=== PATIENT | female | born 1945 | race Caucasian/White ===

== ENCOUNTER 2016-11-24 12:01 | Emergency (ER) | payer MEDICARE, BC ==
[2016-11-24 12:13] VITALS: BP 132/60; PULSE 87; RESP 16; TEMP 97.1
[2016-11-24] MEDS ORDERED: SODIUM CHLORIDE 0.9% 500 ML IV STA (12:42)
[2016-11-24] MEDS ORDERED: MORPHINE SULFATE 4 MG/ML SYRINGE IV STA (12:42)
[2016-11-24] MEDS ORDERED: SODIUM CHLORIDE 0.9% 1,000 ML IV STA (12:42)
--- NOTE | 2016-11-24 13:02 | ED ---
General Adult HPI - General Chief complaint: Extremity Injury, Lower Stated complaint: left knee pain/pneumonia Time Seen by Provider: 11/24/16 12:04 Source: patient, EMS, RN notes reviewed, old records reviewed Mode of arrival: EMS Limitations: no limitations - History of Present Illness Initial comments: This is a 71-year-old female ER for evaluation. Patient presents today for evaluation of extremity pain left knee pain left hip pain after having injury. Patient also states she feels weak, fatigued. Mild shortness of breath. Patient has no other complaints. No modifying factors or symptoms, at this time patient currently unable to bear weight on left - Related Data Home Medications Medication Instructions Recorded Confirmed LORazepam [Ativan] 2 mg PO QID 08/18/16 11/24/16 Edoxaban Tosylate [Savaysa] 60 mg PO HS 11/24/16 11/24/16 Metoprolol Tartrate [Lopressor] 25 mg PO BID 11/24/16 11/24/16 Multivitamins, Thera [Multivitamin] 1 tab PO DAILY 11/24/16 11/24/16 Previous Rx's Medication Instructions Recorded levETIRAcetam [Keppra] 750 mg PO Q12HR #60 tab 08/21/16 HYDROcodone/APAP 5-325MG [[place] 1 tab PO BID #0 10/14/16 5-325] Loratadine [Claritin] 10 mg PO DAILY tab 10/14/16 Allergies Allergy/AdvReac Type Severity Reaction Status Date / Time No Known Allergies Allergy Verified 11/24/16 12:37 Review of Systems ROS Statement: Those systems with pertinent positive or pertinent negative responses have been documented in the HPI. ROS Other: All systems not noted in ROS Statement are negative. Past Medical History Past Medical History: COPD, CVA/TIA, Deep Vein Thrombosis (DVT), GERD/Reflux, Hyperlipidemia, Hypertension, Myocardial Infarction ([place]), Mitral Valve Prolapse (MVP), Osteoarthritis (OA), Pneumonia, Seizure Disorder, Syncope Additional Past Medical History / Comment(s): DVT L lower leg, CVA/TIA with L arm and L leg weakness, constipation, MVP, nephrolithiasis x 2-passed 1 stone, peptic ulcer disease, hiatal hernia, esophageal ulcer, djd,ddd lumbar area, chronic back pain, past L tibial fx and L hip fx, cellulitis L lower leg, UTIs, syncopy. Last Myocardial Infarction Date:: 2015 History of Any Multi-Drug Resistant Organisms: None Reported Past Surgical History: Orthopedic Surgery, Tonsillectomy Additional Past Surgical History / Comment(s): 08/2014 lap exam, LEFT HIP SX WITH NAILING, left eye implant- POST FACIAL INJURY, BRAIN SX R/T ANEURYSM- HAD DRAIN IN NOW OUT, EGD and colonoscopy. Past Anesthesia/Blood Transfusion Reactions: No Reported Reaction Additional Past Anesthesia/Blood Transfusion Reaction / Comment(s): clausterphobia Past Psychological History: Anxiety, Depression Additional Psychological History / Comment(s): Pt resides at [facility]. Pt states she performs her own ADLs. She gets around in a wheelchair and transfers herself into the W/C. HAS BEEN TAKING ATIVAN FOR 35 YRS. Smoking Status: Former smoker Past Alcohol Use History: None Reported Additional Past Alcohol Use History / Comment(s): Pt started smoking in about 1998 and STOPPED SMOKING JUN 2015. She was a light smoker. Past Drug Use History: None Reported - Past Family History Mother Family Medical History: Hypertension Additional Family Medical History / Comment(s): heart problems. Mother at age 87yrs. Father History Unknown: Yes Additional Family Medical History / Comment(s): pt's dad left when she was a baby -no hx known. General Exam Limitations: no limitations General appearance: alert, in no apparent distress, cachectic Head exam: Present: atraumatic, normocephalic, normal inspection Eye exam: Present: normal appearance, PERRL, EOMI. Absent: scleral icterus, conjunctival injection, periorbital swelling ENT exam: Present: normal exam, mucous membranes moist Neck exam: Present: normal inspection. Absent: tenderness, meningismus, lymphadenopathy Respiratory exam: Present: normal lung sounds bilaterally. Absent: respiratory distress, wheezes, rales, rhonchi, stridor Cardiovascular Exam: Present: regular rate, normal rhythm, normal heart sounds. Absent: systolic murmur, diastolic murmur, rubs, gallop, clicks GI/Abdominal exam: Present: soft, normal bowel sounds. Absent: distended, tenderness, guarding, rebound, rigid Extremities exam: Present: normal inspection, full ROM, normal capillary refill. Absent: tenderness, pedal edema, joint swelling, calf tenderness Back exam: Present: normal inspection Neurological exam: Present: alert, oriented X3, CN II-XII intact Psychiatric exam: Present: normal affect, normal mood Skin exam: Present: warm, dry, intact, normal color. Absent: rash Course Vital Signs 11/24/16 12:09 Temperature 97.1 F L Pulse Rate 87 Respiratory 16 Rate Blood Pressure 132/60 O2 Sat by Pulse 95 Oximetry - Reevaluation(s) Reevaluation #1: 11/24/16 14:55 Patient refusing to have IV Reevaluation #2: 11/24/16 14:55 Patient is in no acute distress EKG Findings - EKG Comments: EKG Findings:: EKG shows normal sinus rhythm rate 91, AL 156, QRS 140, QTC 516 Medical Decision Making - Medical Decision Making 7-year-old female year after traumatic injury left knee, patient has continued x -ray of hip knee are negative, chest x-ray also negative. - Lab Data Result diagrams: 11/24/16 13:25 11/24/16 13:25 Lab Results 11/24/16 11/24/16 11/24/16 Range/Units 13:25 13:25 13:25 WBC 10.1 (3.8-10.6) k/uL RBC 3.84 (3.80-5.40) m/uL Hgb 12.2 (11.4-16.0) gm/dL Hct 38.8 (34.0-46.0) % MCV 101.1 H (80.0-100.0) fL MCH 31.8 (25.0-35.0) pg MCHC 31.5 (31.0-37.0) g/dL RDW 14.1 (11.5-15.5) % Plt Count 252 (150-450) k/uL Neutrophils % 85 % Lymphocytes % 9 % Monocytes % 4 % Eosinophils % 0 % Basophils % 1 % Neutrophils # 8.6 H (1.3-7.7) k/uL Lymphocytes # 0.9 L (1.0-4.8) k/uL Monocytes # 0.4 (0-1.0) k/uL Eosinophils # 0.0 (0-0.7) k/uL Basophils # 0.1 (0-0.2) k/uL Macrocytosis Slight Sodium 144 (137-145) mmol/L Potassium 4.1 (3.5-5.1) mmol/L Chloride 108 H (98-107) mmol/L Carbon Dioxide 27 (22-30) mmol/L Anion Gap 9 mmol/L BUN 18 H (7-17) mg/dL Creatinine 0.55 (0.52-1.04) mg/dL Est GFR (MDRD) Af Amer >60 (>60 ml/min/1.73 sqM) Est GFR (MDRD) Non-Af >60 (>60 ml/min/1.73 sqM) Glucose 99 (74-99) mg/dL Calcium 8.5 (8.4-10.2) mg/dL Phosphorus 3.9 (2.5-4.5) mg/dL Magnesium 1.7 (1.6-2.3) mg/dL Total Bilirubin 0.3 (0.2-1.3) mg/dL AST 20 (14-36) U/L ALT 29 (9-52) U/L Alkaline Phosphatase 91 (38-126) U/L Total Creatine Kinase 50 (30-135) U/L CK-MB (CK-2) 0.8 (0.0-2.4) ng/mL CK-MB (CK-2) Rel Index 1.6 Troponin I 0.020 (0.000-0.034) ng/mL Total Protein 6.4 (6.3-8.2) g/dL Albumin 3.3 L (3.5-5.0) g/dL - Radiology Data Radiology results: report reviewed (Chest x-ray and a left hip x-ray left knee negative for acute disease), image reviewed Disposition Clinical Impression: Contusion of left knee Disposition: HOME SELF-CARE Condition: Good Instructions: Knee Pain (ED) Referrals: Masood Cornejo MD [Primary Care Provider] - 1-2 days
[2016-11-24 13:43] LABS: Basophils # (A) 0.1 k/uL (0-0.2); Basophils % (A) 1 %; CHCM 32.8; Eosinophils % (A) 0 %; HCT 38.8 % (34.0-46.0); HDW 2.43; HGB 12.2 gm/dL (11.4-16.0); Luc # (Auto) 0.07; Luc % (Auto) 1; Lymphocytes # (A) 0.9 k/uL (1.0-4.8); Lymphocytes % (A) 9 %; MCH 31.8 pg (25.0-35.0); MCHC 31.5 g/dL (31.0-37.0); MCV 101.1 fL (80.0-100.0); Macrocytosis Slight; Monocytes # (A) 0.4 k/uL (0-1.0); Monocytes % (A) 4 %; Neutrophils # (A) 8.6 k/uL (1.3-7.7); Neutrophils % (A) 85 %; RBC 3.84 m/uL (3.80-5.40); RDW 14.1 % (11.5-15.5); WBC 10.1 k/uL (3.8-10.6); WBC (Perox) 9.99
[2016-11-24 13:58] LABS: ALT 29 U/L (9-52); AST 20 U/L (14-36); Alkaline Phosphatase 91 U/L (38-126); Anion Gap 9 mmol/L; Blood Urea Nitrogen 18 mg/dL (7-17); Calcium 8.5 mg/dL (8.4-10.2); Carbon Dioxide 27 mmol/L (22-30); Chloride 108 mmol/L (98-107); Glucose 99 mg/dL (74-99); Magnesium 1.7 mg/dL (1.6-2.3); Non-African American GFR(MDRD) >60 (>60 ml/min/1.73 sqM); Phosphorous 3.9 mg/dL (2.5-4.5); Potassium 4.1 mmol/L (3.5-5.1); Sodium 144 mmol/L (137-145); Total Bilirubin 0.3 mg/dL (0.2-1.3); Total Protein 6.4 g/dL (6.3-8.2)
--- NOTE | 2016-11-24 14:35 | XR ---
EXAMINATION TYPE: XR chest 2V DATE OF EXAM: 11/24/2016 2:26 PM COMPARISON: Prior chest x-ray October 12, 2016 HISTORY: Shortness of breath TECHNIQUE: Frontal and lateral views of the chest are obtained. FINDINGS: There is chronic emphysematous change with perhaps new mild central vascular congestion. Th ere is no focal air space opacity, pleural effusion, or pneumothorax seen. The cardiac silhouette si ze is stable and within normal limits without reflect thoracic aorta. The osseous structures are de mineralized. IMPRESSION: Chronic parenchymal changes with perhaps new mild central vascular congestion, clinical correlation advised.
[2016-11-24 14:37] LABS: Creatine Kinase MB 0.8 ng/mL (0.0-2.4); Troponin I 0.02 ng/mL (0.000-0.034)
--- NOTE | 2016-11-24 14:42 | XR ---
EXAMINATION TYPE: XR knee complete LT DATE OF EXAM: 11/24/2016 2:27 PM CLINICAL HISTORY: pain TECHNIQUE: Three views of the left knee are obtained. COMPARISON: None. FINDINGS: There is no acute fracture/dislocation. Healed approximately tibial fracture. The tri-comp artment joint spaces appear within normal limits. The overlying soft tissue appears unremarkable. IMPRESSION: There is no acute fracture or dislocation ICD 10 NO FRACTURE, INITIAL EVALUATION
--- NOTE | 2016-11-24 14:43 | XR ---
EXAMINATION TYPE: XR Hip Complete LT DATE OF EXAM: 11/24/2016 2:27 PM CLINICAL HISTORY: pain TECHNIQUE: AP and frogleg views of the left hip are obtained. COMPARISON: 09/15/2016 FINDINGS: There is no acute fracture/dislocation evident. Dynamic compression screw and intramedulla ry calvin proximal left femur. The overlying soft tissue appears unremarkable. IMPRESSION: 1. There is no acute fracture or dislocation.
[2016-11-24] MEDS ORDERED: KETOROLAC 30 MG/ML 1 ML VIAL IM STA (15:10)
[2016-11-24 15:35] LABS: Appearance,Urine Clear (Clear); Bacteria,Urine Occasional /hpf; Bilirubin,Urine Negative (Negative); Glucose,Urine (UA) Negative (Negative); Ketones,Urine Negative (Negative); Leukocyte Esterase,Urine Small (Negative); Mucus,Urine Rare /hpf; Nitrite,Urine Negative (Negative); Particle Count 2108; Protein,Urine Negative (Negative); RBC,Urine 87 /hpf (0-5); Squamous Epithelial Cell,Urine 2 /hpf (0-4); UA Billing (MACRO vs. MICRO) MICRO; Urobilinogen,Urine <2.0 mg/dL (<2.0); WBC,Urine 9 /hpf (0-5)
== END 2016-11-24 15:26 | disposition home or self-care (01) ==
LOC: EC 12:01
DX: S80.02XA Contusion of left knee, initial encounter (principal); X58.XXXA Exposure to other specified factors, initial encounter; R06.02 Shortness of breath; I10 Essential (primary) hypertension; G40.909 Epilepsy, unspecified, not intractable, without status epilepticus; J44.9 Chronic obstructive pulmonary disease, unspecified; F41.9 Anxiety disorder, unspecified; Z79.899 Other long term (current) drug therapy; Z79.01 Long term (current) use of anticoagulants; Z86.718 Personal history of other venous thrombosis and embolism; Z87.891 Personal history of nicotine dependence; Z86.73 Personal history of transient ischemic attack (TIA), and cerebral infarction without residual deficits; I25.2 Old myocardial infarction
CPT/HCPCS: 36415; 71020; 73502; 80053; 81001; 82550; 82553; 83735; 84100; 84484; 85025; 87077; 87086; 87186; 93005; 99284

== ENCOUNTER 2016-12-09 13:15 | Emergency (ER) | payer MEDICARE, BC ==
--- NOTE | 2016-12-09 13:37 | ED ---
General Adult HPI - General Chief complaint: Fall Stated complaint: Lt hip pain/fall Time Seen by Provider: 12/09/16 13:20 Source: patient, EMS, RN notes reviewed Mode of arrival: EMS Limitations: no limitations - History of Present Illness Initial comments: This is a 71-year-old female who presents emergency department stating that she was trying to transfer from wheelchair to the bed and she fell into the bed and hit her medial on the railing of the bed. Patient states she did not fall to the ground but she did tell the nurse she had left hip pain. Patient denied left hip pain when I spoke with. Patient denies any other injury. Patient denies losing consciousness or hitting her head at all. Patient denies any neck pain patient denies numbness weakness. Patient denies chest pain or palpitations. Patient denies any shortness of breath or difficulty breathing. Patient denies any other extremity pain. - Related Data Home Medications Medication Instructions Recorded Confirmed LORazepam [Ativan] 2 mg PO QID 08/18/16 12/09/16 Edoxaban Tosylate [Savaysa] 60 mg PO HS 11/24/16 12/09/16 Metoprolol Tartrate [Lopressor] 25 mg PO BID 11/24/16 12/09/16 Multivitamins, Thera [Multivitamin] 1 tab PO DAILY 11/24/16 12/09/16 Previous Rx's Medication Instructions Recorded levETIRAcetam [Keppra] 750 mg PO Q12HR #60 tab 08/21/16 HYDROcodone/APAP 5-325MG [[place] 1 tab PO BID #0 10/14/16 5-325] Loratadine [Claritin] 10 mg PO DAILY tab 10/14/16 Allergies Allergy/AdvReac Type Severity Reaction Status Date / Time No Known Allergies Allergy Verified 12/09/16 13:49 Review of Systems ROS Statement: Those systems with pertinent positive or pertinent negative responses have been documented in the HPI. ROS Other: All systems not noted in ROS Statement are negative. Past Medical History Past Medical History: COPD, CVA/TIA, Deep Vein Thrombosis (DVT), GERD/Reflux, Hyperlipidemia, Hypertension, Myocardial Infarction ([place]), Mitral Valve Prolapse (MVP), Osteoarthritis (OA), Pneumonia, Seizure Disorder, Syncope Additional Past Medical History / Comment(s): DVT L lower leg, CVA/TIA with L arm and L leg weakness, constipation, MVP, nephrolithiasis x 2-passed 1 stone, peptic ulcer disease, hiatal hernia, esophageal ulcer, djd,ddd lumbar area, chronic back pain, past L tibial fx and L hip fx, cellulitis L lower leg, UTIs, syncopy. Last Myocardial Infarction Date:: 2015 History of Any Multi-Drug Resistant Organisms: None Reported Past Surgical History: Orthopedic Surgery, Tonsillectomy Additional Past Surgical History / Comment(s): 08/2014 lap exam, LEFT HIP SX WITH NAILING, left eye implant- POST FACIAL INJURY, BRAIN SX R/T ANEURYSM- HAD DRAIN IN NOW OUT, EGD and colonoscopy. Past Anesthesia/Blood Transfusion Reactions: No Reported Reaction Additional Past Anesthesia/Blood Transfusion Reaction / Comment(s): clausterphobia Past Psychological History: Anxiety, Depression Additional Psychological History / Comment(s): Pt resides at [facility]. Pt states she performs her own ADLs. She gets around in a wheelchair and transfers herself into the W/C. HAS BEEN TAKING ATIVAN FOR 35 YRS. Smoking Status: Former smoker Past Alcohol Use History: None Reported Additional Past Alcohol Use History / Comment(s): Pt started smoking in about 1998 and STOPPED SMOKING JUN 2015. She was a light smoker. Past Drug Use History: None Reported - Past Family History Mother Family Medical History: Hypertension Additional Family Medical History / Comment(s): heart problems. Mother at age 87yrs. Father History Unknown: Yes Additional Family Medical History / Comment(s): pt's dad left when she was a baby -no hx known. General Exam - General Exam Comments Initial Comments: GENERAL Patient is well-developed and well-nourished. Patient is in mild distress. EYES Patient's pupils are equal and round. Extraocular motion is intact SKIN Unremarkable NEURO The patient is alert and oriented 3 PYSCH Patient has normal interpersonal interactions. MUSCULOSKELETAL Patient has some tenderness to the suprapatellar region there is no swelling there is no bruising patient has full range of motion of the leg except for full extension which she states is chronic. Patient has no hip pain that I can ascertain. Limitations: no limitations Course Vital Signs 12/09/16 13:19 Temperature 97.9 F Pulse Rate 96 Respiratory 18 Rate Blood Pressure 154/78 O2 Sat by Pulse 90 L Oximetry Medical Decision Making - Medical Decision Making X-ray the patient's knee and pelvis did not show any acute abnormality. Disposition Clinical Impression: Knee strain Disposition: HOME SELF-CARE Condition: Good Instructions: Fall Prevention for Older Adults (ED) Referrals: Masood Cornejo MD [Primary Care Provider] - 1-2 days Time of Disposition: 14:50
--- NOTE | 2016-12-09 14:23 | XR ---
AP pelvis HISTORY: Trauma, pain Frontal view of the pelvis submitted and correlated to prior exam CT abdomen pelvis 11 October 2016, left hip 24 November 2016 Postop changes to the left hip are again noted, bone mineralization is reduced and there is varus def ormity. Vascular calcifications are present within the pelvis. No evident dislocation. Patient is rot ated. The site screw may breech the cortex of the femoral head. IMPRESSION: Low bone mineralization could limit sensitivity. Postop change is stable.
--- NOTE | 2016-12-09 14:27 | XR ---
Left knee HISTORY: Pain, fall 3 views of the left knee Correlation to prior exam 24 November 2016 There is no interval change. Cortical thickening present in the proximal diaphysis of the left tibia as on prior exam. This may BE due to old trauma. There are vascular calcifications. IMPRESSION: Stable exam. No acute abnormalities evident.
[2016-12-09 15:26] VITALS: BP 146/73; PULSE 88; RESP 16; TEMP 97.5
== END 2016-12-09 15:28 | disposition home or self-care (01) ==
LOC: EC 13:15
DX: S83.92XA Sprain of unspecified site of left knee, initial encounter (principal); I25.2 Old myocardial infarction; I10 Essential (primary) hypertension; F41.9 Anxiety disorder, unspecified; F32.9 Major depressive disorder, single episode, unspecified; Z79.899 Other long term (current) drug therapy; Z87.891 Personal history of nicotine dependence; W05.0XXA Fall from non-moving wheelchair, initial encounter; Y92.009 Unspecified place in unspecified non-institutional (private) residence as the place of occurrence of the external cause
CPT/HCPCS: 72170; 99284

== ENCOUNTER 2016-12-25 16:22 | Inpatient (IN) | payer MEDICARE, BC ==
[2016-12-25] MEDS ORDERED: SODIUM CHLORIDE 0.9% 1,000 ML IV STA (16:26)
[2016-12-25 16:50] LABS: ALT 22 U/L (9-52); AST 18 U/L (14-36); Alkaline Phosphatase 89 U/L (38-126); Anion Gap 10 mmol/L; Blood Urea Nitrogen 21 mg/dL (7-17); Calcium 8.8 mg/dL (8.4-10.2); Carbon Dioxide 25 mmol/L (22-30); Chloride 110 mmol/L (98-107); Glucose 99 mg/dL (74-99); Non-African American GFR(MDRD) >60 (>60 ml/min/1.73 sqM); Potassium 3.9 mmol/L (3.5-5.1); Sodium 145 mmol/L (137-145); Total Bilirubin 0.3 mg/dL (0.2-1.3)
[2016-12-25 16:51] LABS: INR 1.2 (<1.1); Prothrombin Time 11.6 sec (9.0-12.0)
[2016-12-25 17:01] LABS: Aty Lym Flag Slight; Basophils % (A) 1 %; CH 32.1; CHCM 32.7; Eosinophils # (A) 0.1 k/uL (0-0.7); Eosinophils % (A) 2 %; HCT 37.5 % (34.0-46.0); HDW 2.47; HGB 12.2 gm/dL (11.4-16.0); Luc # (Auto) 0.24; Luc % (Auto) 5; Lymphocytes # (A) 1.4 k/uL (1.0-4.8); Lymphocytes % (A) 27 %; MCH 32.1 pg (25.0-35.0); MCHC 32.5 g/dL (31.0-37.0); MCV 98.7 fL (80.0-100.0); Mean Platelet Volume 8.2; Monocytes # (A) 0.4 k/uL (0-1.0); Monocytes % (A) 8 %; Neutrophils # (A) 2.9 k/uL (1.3-7.7); Neutrophils % (A) 57 %; RDW 13.7 % (11.5-15.5); WBC (Perox) 4.96
[2016-12-25 17:14] LABS: Creatine Kinase MB 1.7 ng/mL (0.0-2.4); Troponin I 0.023 ng/mL (0.000-0.034)
[2016-12-25 17:15] LABS: Manual Review Performed; Nucleated Red Blood Cells 0 /100 WBC (0-0); Total Cells Counted 100
--- NOTE | 2016-12-25 17:35 | XR ---
EXAMINATION TYPE: XR chest 1V portable DATE OF EXAM: 12/25/2016 5:26 PM COMPARISON: 11/24/2016 HISTORY: Short of breath TECHNIQUE: Single frontal view of the chest is obtained. FINDINGS: Heart and mediastinum are normal. There is coarse interstitial infiltrate in both lungs wi th coalescent density in the right lower lobe and also lateral left lung base. There are no hilar mas ses. There is no heart failure. There are chest leads. There is no definite pleural effusion. IMPRESSION: There are new bilateral pneumonic infiltrates compared to old exam consistent with pneum onia. No gross heart failure.
[2016-12-25] MEDS ORDERED: SODIUM CHLORIDE 0.9% 500 ML IV STA (17:48)
[2016-12-25] MEDS ORDERED: KETOROLAC 30 MG/ML 1 ML VIAL IVP STA (17:48)
[2016-12-25] MEDS ORDERED: MORPHINE SULFATE 4 MG/ML SYRINGE IVP STA (17:48)
[2016-12-25] MEDS ORDERED: MORPHINE SULFATE 4 MG/ML SYRINGE IVP PRN (17:48)
[2016-12-25] MEDS ORDERED: NITROGLYCERIN SL TABS 0.4 MG TAB SUBLINGUAL PRN (17:49)
[2016-12-25] MEDS ORDERED: HEPARIN SODIUM,PORCINE 5,000 UNIT/ML 1 ML VIAL IV ONE (17:49)
[2016-12-25] MEDS ORDERED: HEPARIN SODIUM,PORCINE 5,000 UNIT/ML 1 ML VIAL IV PRN (17:49)
[2016-12-25] MEDS ORDERED: IPRATROPIUM-ALBUTEROL 3 ML NEB INHALATION STA (17:54)
[2016-12-25] MEDS ORDERED: PIPERACILLIN-TAZOBACTAM 3.375 GM in DEXTROSE/WATER 1 50ML.BAG IVPB STA (17:54)
[2016-12-25] MEDS ORDERED: LEVOFLOXACIN 750MG-D5W PMX 750 MG in DEXTROSE/WATER 1 150ML.BAG IVPB STA (17:54)
--- NOTE | 2016-12-25 17:54 | ED ---
General Adult HPI - General Chief complaint: Chest Pain Stated complaint: chest pain Time Seen by Provider: 12/25/16 16:24 Source: patient, RN notes reviewed, old records reviewed Mode of arrival: EMS Limitations: no limitations - History of Present Illness Initial comments: This is a 71-year-old female ER for reevaluation chest pain. Patient's anterior chest pain radiating to her back. Patient is no prior history of chest pain no trauma no falls. Has increased cough and some sick contacts with recent hospitalization about 2 weeks ago and patient states his x-ray care facility. Patient does have COPD and has mild shortness of breath she states that is her baseline. Patient denies radiation of chest pain, worse when she coughs or takes deep breath. - Related Data Home Medications Medication Instructions Recorded Confirmed LORazepam [Ativan] 2 mg PO QID 08/18/16 12/25/16 Edoxaban Tosylate [Savaysa] 60 mg PO HS 11/24/16 12/25/16 Multivitamins, Thera [Multivitamin] 1 tab PO DAILY 11/24/16 12/25/16 Amitriptyline HCl [Elavil] 50 mg PO HS 12/25/16 12/25/16 Metoprolol Tartrate [Lopressor] 50 mg PO BID 12/25/16 12/25/16 Omeprazole 20 mg PO DAILY 12/25/16 12/25/16 Oxybutynin Chloride [Ditropan] 5 mg PO DAILY 12/25/16 12/25/16 amLODIPine [Norvasc] 5 mg PO DAILY 12/25/16 12/25/16 levETIRAcetam [Keppra] 750 mg PO Q12H 12/25/16 12/25/16 traMADol HCL [Ultram] 50 mg PO Q6HR PRN 12/25/16 12/25/16 Previous Rx's Medication Instructions Recorded Loratadine [Claritin] 10 mg PO DAILY tab 10/14/16 Allergies Allergy/AdvReac Type Severity Reaction Status Date / Time No Known Allergies Allergy Verified 12/25/16 17:25 Review of Systems ROS Statement: Those systems with pertinent positive or pertinent negative responses have been documented in the HPI. ROS Other: All systems not noted in ROS Statement are negative. Past Medical History Past Medical History: COPD, CVA/TIA, Deep Vein Thrombosis (DVT), GERD/Reflux, Hyperlipidemia, Hypertension, Myocardial Infarction ([place]), Mitral Valve Prolapse (MVP), Osteoarthritis (OA), Pneumonia, Seizure Disorder, Syncope Additional Past Medical History / Comment(s): DVT L lower leg, CVA/TIA with L arm and L leg weakness, constipation, MVP, nephrolithiasis x 2-passed 1 stone, peptic ulcer disease, hiatal hernia, esophageal ulcer, djd,ddd lumbar area, chronic back pain, past L tibial fx and L hip fx, cellulitis L lower leg, UTIs, syncopy. Last Myocardial Infarction Date:: 2015 History of Any Multi-Drug Resistant Organisms: None Reported Past Surgical History: Orthopedic Surgery, Tonsillectomy Additional Past Surgical History / Comment(s): 08/2014 lap exam, LEFT HIP SX WITH NAILING, left eye implant- POST FACIAL INJURY, BRAIN SX R/T ANEURYSM- HAD DRAIN IN NOW OUT, EGD and colonoscopy. Past Anesthesia/Blood Transfusion Reactions: No Reported Reaction Additional Past Anesthesia/Blood Transfusion Reaction / Comment(s): clausterphobia Past Psychological History: Anxiety, Depression Additional Psychological History / Comment(s): Pt resides at [facility]. Pt states she performs her own ADLs. She gets around in a wheelchair and transfers herself into the W/C. HAS BEEN TAKING ATIVAN FOR 35 YRS. Smoking Status: Current every day smoker Past Alcohol Use History: None Reported Additional Past Alcohol Use History / Comment(s): Pt started smoking in about 1998 and STOPPED SMOKING JUN 2015. She was a light smoker. Past Drug Use History: None Reported - Past Family History Mother Family Medical History: Hypertension Additional Family Medical History / Comment(s): heart problems. Mother at age 87yrs. Father History Unknown: Yes Additional Family Medical History / Comment(s): pt's dad left when she was a baby -no hx known. General Exam Limitations: no limitations General appearance: alert, in no apparent distress, anxious, cachectic Head exam: Present: atraumatic, normocephalic, normal inspection Eye exam: Present: normal appearance, PERRL, EOMI. Absent: scleral icterus, conjunctival injection, periorbital swelling ENT exam: Present: normal exam, mucous membranes moist Neck exam: Present: normal inspection. Absent: tenderness, meningismus, lymphadenopathy Respiratory exam: Present: normal lung sounds bilaterally, wheezes, decreased breath sounds, prolonged expiratory. Absent: respiratory distress, rales, rhonchi, stridor Cardiovascular Exam: Present: regular rate, normal rhythm, normal heart sounds. Absent: systolic murmur, diastolic murmur, rubs, gallop, clicks GI/Abdominal exam: Present: soft, normal bowel sounds. Absent: distended, tenderness, guarding, rebound, rigid Extremities exam: Present: normal inspection, full ROM, normal capillary refill. Absent: tenderness, pedal edema, joint swelling, calf tenderness Back exam: Present: normal inspection Neurological exam: Present: alert, oriented X3, CN II-XII intact Psychiatric exam: Present: normal affect, normal mood Skin exam: Present: warm, dry, intact, normal color. Absent: rash Course Vital Signs 12/25/16 16:23 Temperature 97.2 F L Pulse Rate 94 Respiratory 18 Rate Blood Pressure 146/76 O2 Sat by Pulse 95 Oximetry - Reevaluation(s) Reevaluation #1: 12/25/16 17:53 Patient having mild cough congestion at this time, we'll prep and breathing treatment EKG Findings - EKG Comments: EKG Findings:: EKG shows normal sinus rhythm rate 92, FL 150, QRS 144, QTc 509 Medical Decision Making - Lab Data Result diagrams: 12/25/16 16:27 12/25/16 16:27 Lab Results 12/25/16 12/25/16 12/25/16 Range/Units 16:27 16:27 16:27 WBC 5.0 (3.8-10.6) k/uL RBC 3.80 (3.80-5.40) m/uL Hgb 12.2 (11.4-16.0) gm/dL Hct 37.5 (34.0-46.0) % MCV 98.7 (80.0-100.0) fL MCH 32.1 (25.0-35.0) pg MCHC 32.5 (31.0-37.0) g/dL RDW 13.7 (11.5-15.5) % Plt Count 378 (150-450) k/uL Neutrophils % 57 % Neutrophils % (Manual) 54.0 % Lymphocytes % 27 % Lymphocytes % (Manual) 35.0 % Monocytes % 8 % Monocytes % (Manual) 6.0 % Eosinophils % 2 % Eosinophils % (Manual) 3.0 % Basophils % 1 % Basophils % (Manual) 2.0 % Neutrophils # 2.9 (1.3-7.7) k/uL Neutrophils # (Manual) 2.7 (1.3-7.7) k/uL Lymphocytes # 1.4 (1.0-4.8) k/uL Lymphocytes # (Manual) 1.8 (1.0-4.8) k/uL Monocytes # 0.4 (0-1.0) k/uL Monocytes # (Manual) 0.3 (0-1.0) k/uL Eosinophils # 0.1 (0-0.7) k/uL Eosinophils # (Manual) 0.2 (0-0.7) k/uL Basophils # 0.0 (0-0.2) k/uL Basophils # (Manual) 0.1 (0-0.2) k/uL Nucleated RBCs 0 (0-0) /100 WBC Manual Slide Review Performed PT (9.0-12.0) sec INR (<1.1) APTT (22.0-30.0) sec Sodium 145 (137-145) mmol/L Potassium 3.9 (3.5-5.1) mmol/L Chloride 110 H (98-107) mmol/L Carbon Dioxide 25 (22-30) mmol/L Anion Gap 10 mmol/L BUN 21 H (7-17) mg/dL Creatinine 0.53 (0.52-1.04) mg/dL Est GFR (MDRD) Af Amer >60 (>60 ml/min/1.73 sqM) Est GFR (MDRD) Non-Af >60 (>60 ml/min/1.73 sqM) Glucose 99 (74-99) mg/dL Calcium 8.8 (8.4-10.2) mg/dL Magnesium 2.0 (1.6-2.3) mg/dL Total Bilirubin 0.3 (0.2-1.3) mg/dL AST 18 (14-36) U/L ALT 22 (9-52) U/L Alkaline Phosphatase 89 (38-126) U/L Total Creatine Kinase 77 (30-135) U/L CK-MB (CK-2) 1.7 (0.0-2.4) ng/mL CK-MB (CK-2) Rel Index 2.2 Troponin I 0.023 (0.000-0.034) ng/mL NT-Pro-B Natriuret Pep pg/mL Total Protein 7.0 (6.3-8.2) g/dL Albumin 3.4 L (3.5-5.0) g/dL Lipase 23 (23-300) U/L 12/25/16 12/25/16 Range/Units 16:27 16:27 WBC (3.8-10.6) k/uL RBC (3.80-5.40) m/uL Hgb (11.4-16.0) gm/dL Hct (34.0-46.0) % MCV (80.0-100.0) fL MCH (25.0-35.0) pg MCHC (31.0-37.0) g/dL RDW (11.5-15.5) % Plt Count (150-450) k/uL Neutrophils % % Neutrophils % (Manual) % Lymphocytes % % Lymphocytes % (Manual) % Monocytes % % Monocytes % (Manual) % Eosinophils % % Eosinophils % (Manual) % Basophils % % Basophils % (Manual) % Neutrophils # (1.3-7.7) k/uL Neutrophils # (Manual) (1.3-7.7) k/uL Lymphocytes # (1.0-4.8) k/uL Lymphocytes # (Manual) (1.0-4.8) k/uL Monocytes # (0-1.0) k/uL Monocytes # (Manual) (0-1.0) k/uL Eosinophils # (0-0.7) k/uL Eosinophils # (Manual) (0-0.7) k/uL Basophils # (0-0.2) k/uL Basophils # (Manual) (0-0.2) k/uL Nucleated RBCs (0-0) /100 WBC Manual Slide Review PT 11.6 (9.0-12.0) sec INR 1.2 (<1.1) APTT 28.0 (22.0-30.0) sec Sodium (137-145) mmol/L Potassium (3.5-5.1) mmol/L Chloride (98-107) mmol/L Carbon Dioxide (22-30) mmol/L Anion Gap mmol/L BUN (7-17) mg/dL Creatinine (0.52-1.04) mg/dL Est GFR (MDRD) Af Amer (>60 ml/min/1.73 sqM) Est GFR (MDRD) Non-Af (>60 ml/min/1.73 sqM) Glucose (74-99) mg/dL Calcium (8.4-10.2) mg/dL Magnesium (1.6-2.3) mg/dL Total Bilirubin (0.2-1.3) mg/dL AST (14-36) U/L ALT (9-52) U/L Alkaline Phosphatase (38-126) U/L Total Creatine Kinase (30-135) U/L CK-MB (CK-2) (0.0-2.4) ng/mL CK-MB (CK-2) Rel Index Troponin I (0.000-0.034) ng/mL NT-Pro-B Natriuret Pep 1540 pg/mL Total Protein (6.3-8.2) g/dL Albumin (3.5-5.0) g/dL Lipase (23-300) U/L - Radiology Data Radiology results: report reviewed (Chest x-ray is positive for pneumonia), image reviewed Critical Care Time Critical Care Time: Yes Total Critical Care Time: 31 Disposition Clinical Impression: Atypical chest pain, Chest pain, COPD (chronic obstructive pulmonary disease), Bilateral pneumonia Disposition: ADMITTED IP TO THIS [facility] Condition: Fair Referrals: Masood Cornejo MD [Primary Care Provider] - 1-2 days
[2016-12-25] MEDS: HEPARIN SODIUM,PORCINE/D5W PMX 25,000 UNIT in DEXTROSE/WATER 1 500ML.BAG IV SCH (18:11)
[2016-12-25] MEDS: AMITRIPTYLINE HCL 50 MG TAB PO SCH (21:09)
[2016-12-25] MEDS: LORazepam 1 MG TAB PO SCH (21:09)
[2016-12-25] MEDS: METOPROLOL TARTRATE 50 MG TAB PO SCH (21:10)
[2016-12-25] MEDS: IPRATROPIUM-ALBUTEROL 3 ML NEB INHALATION SCH (21:50)
[2016-12-25] MEDS: traMADol 50 MG TAB PO PRN (22:13)
[2016-12-25 23:27] LABS: Creatine Kinase MB 1.8 ng/mL (0.0-2.4)
[2016-12-25 23:30] LABS: Troponin I 0.037 ng/mL (0.000-0.034)
[2016-12-26] MEDS ORDERED: HYDROcodone/APAP 5-325MG 1 EACH TAB PO STA (00:31)
[2016-12-26] MEDS: PIPERACILLIN-TAZOBACTAM 3.375 GM in DEXTROSE/WATER 1 50ML.BAG IVPB SCH ×3 (01:06→17:35)
[2016-12-26] MEDS: IPRATROPIUM-ALBUTEROL 3 ML NEB INHALATION SCH ×5 (03:25→19:55)
[2016-12-26 06:13] LABS: Appearance,Urine Cloudy (Clear); Bacteria,Urine Many /hpf; Bilirubin,Urine Negative (Negative); Glucose,Urine (UA) Negative (Negative); Ketones,Urine Trace (Negative); Leukocyte Esterase,Urine Large (Negative); Nitrite,Urine Positive (Negative); Particle Count 30564; Protein,Urine 1+ (Negative); RBC,Urine >182 /hpf (0-5); Specific Gravity,Urine 1.032 (1.001-1.035); Squamous Epithelial Cell,Urine 3 /hpf (0-4); UA Billing (MACRO vs. MICRO) MICRO; Urobilinogen,Urine <2.0 mg/dL (<2.0); WBC,Urine 41 /hpf (0-5)
[2016-12-26] MEDS: PANTOPRAZOLE 40 MG TABLET PO SCH (06:14)
[2016-12-26] MEDS: traMADol 50 MG TAB PO PRN ×2 (06:14→17:23)
[2016-12-26 07:08] LABS: Mean Platelet Volume 8.6
[2016-12-26 07:16] LABS: Cholesterol 110 mg/dL (<200); HDL Cholesterol 43 mg/dL (40-60); Triglycerides 97 mg/dL (<150)
[2016-12-26 07:33] LABS: Creatine Kinase MB 1.8 ng/mL (0.0-2.4); Troponin I 0.024 ng/mL (0.000-0.034)
[2016-12-26 08:33] LABS: Glucose,Whole Blood 40 mg/dL (75-99)
[2016-12-26 09:27] LABS: Glucose,Whole Blood 108 mg/dL (75-99)
[2016-12-26] MEDS: METOPROLOL TARTRATE 50 MG TAB PO SCH ×2 (09:27→21:20)
[2016-12-26] MEDS: amLODIPine 5 MG TAB PO SCH (09:27)
[2016-12-26] MEDS: LORATADINE 10 MG TAB PO SCH (09:27)
[2016-12-26] MEDS: OXYBUTYNIN CHLORIDE 5 MG TAB PO SCH (09:27)
[2016-12-26] MEDS: MULTIVITAMINS, THERA 1 EACH TAB PO SCH (09:27)
[2016-12-26] MEDS: LORazepam 1 MG TAB PO SCH ×4 (09:31→21:19)
--- NOTE | 2016-12-26 10:23 | P.CRDCN ---
History of Present Illness Consult date: 12/26/16 Consult reason: chest pain Chief complaint: cough, chest pain History of present illness: This is a frail 71-year-old female who resides in [facility]. She presented to the emergency department with complaints of a 2 week history of intermittent sharp stabbing chest discomfort. Chest pain occurs at rest with no associated symptoms. She also complains of a cough. 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 According to patient's medical record she has a history of COPD, hyperlipidemia, hypertension, [place], DVT and paroxysmal atrial fibrillation for which she is on Savaysa. EKG on admission shows sinus rhythm with a left bundle branch block which was also seen on previous EKGs. Chest x-ray showed new bilateral infiltrates compared to an old exam consistent with pneumonia. Troponin levels were 0.023, 0.037 and 0.024. Urinalysis is consistent with UTI. BUN 21 and creatinine 0.53. Upon examination this morning, patient is resting comfortably in bed. She continues to complain of a cough however has no current complaints of chest discomfort. She denies complaints of her, chills, dizziness, syncope or edema. She does have left-sided weakness with very little movement in the left upper extremity following CVA. Past Medical History Past Medical History: COPD, CVA/TIA, Deep Vein Thrombosis (DVT), GERD/Reflux, Hyperlipidemia, Hypertension, Myocardial Infarction ([place]), Mitral Valve Prolapse (MVP), Osteoarthritis (OA), Pneumonia, Seizure Disorder, Syncope Additional Past Medical History / Comment(s): DVT L lower leg, CVA/TIA with L arm and L leg weakness, constipation, MVP, nephrolithiasis x 2-passed 1 stone, peptic ulcer disease, hiatal hernia, esophageal ulcer, djd,ddd lumbar area, chronic back pain, past L tibial fx and L hip fx, cellulitis L lower leg, UTIs, syncopy. Last Myocardial Infarction Date:: 2015 History of Any Multi-Drug Resistant Organisms: None Reported Past Surgical History: Orthopedic Surgery, Tonsillectomy Additional Past Surgical History / Comment(s): 08/2014 lap exam, LEFT HIP SX WITH NAILING, left eye implant- POST FACIAL INJURY, BRAIN SX R/T ANEURYSM- HAD DRAIN IN NOW OUT, EGD and colonoscopy. Past Anesthesia/Blood Transfusion Reactions: No Reported Reaction Additional Past Anesthesia/Blood Transfusion Reaction / Comment(s): Claustrophobia Past Psychological History: Anxiety, Depression Additional Psychological History / Comment(s): Pt resides at [facility]. Pt states she performs her own ADLs. She gets around in a wheelchair and transfers herself into the W/C. HAS BEEN TAKING ATIVAN FOR 35 YRS. Smoking Status: Former smoker Past Alcohol Use History: None Reported Additional Past Alcohol Use History / Comment(s): Pt started smoking in about 1998 and STOPPED SMOKING JUN 2015. She was a light smoker. Past Drug Use History: None Reported - Past Family History Mother Family Medical History: Hypertension Additional Family Medical History / Comment(s): heart problems. Mother at age 87yrs. Father History Unknown: Yes Additional Family Medical History / Comment(s): pt's dad left when she was a baby -no hx known. Medications and Allergies Home Medications Medication Instructions Recorded Confirmed Type LORazepam [Ativan] 2 mg PO QID 08/18/16 12/25/16 History Edoxaban Tosylate [Savaysa] 60 mg PO HS 11/24/16 12/25/16 History Multivitamins, Thera [Multivitamin] 1 tab PO DAILY 11/24/16 12/25/16 History Amitriptyline HCl [Elavil] 50 mg PO HS 12/25/16 12/25/16 History Metoprolol Tartrate [Lopressor] 50 mg PO BID 12/25/16 12/25/16 History Omeprazole 20 mg PO DAILY 12/25/16 12/25/16 History Oxybutynin Chloride [Ditropan] 5 mg PO DAILY 12/25/16 12/25/16 History amLODIPine [Norvasc] 5 mg PO DAILY 12/25/16 12/25/16 History levETIRAcetam [Keppra] 750 mg PO Q12H 12/25/16 12/25/16 History traMADol HCL [Ultram] 50 mg PO Q6HR PRN 12/25/16 12/25/16 History Allergies Allergy/AdvReac Type Severity Reaction Status Date / Time No Known Allergies Allergy Verified 12/25/16 17:25 Physical Exam Vitals: Vital Signs Temp Pulse Pulse Resp BP BP Pulse Ox 12/26/16 08:34 74 12/26/16 08:24 72 12/26/16 08:00 97.7 F 80 129/57 95 12/26/16 04:00 97.6 F 73 18 157/79 94 L 12/26/16 00:00 74 18 117/74 95 12/25/16 22:02 77 12/25/16 21:52 90 12/25/16 21:05 78 18 119/63 96 12/25/16 20:00 85 18 12/25/16 19:30 97.2 F L 85 18 150/82 96 12/25/16 19:00 97.5 F L 78 14 159/74 91 L 12/25/16 18:35 88 12/25/16 18:23 84 12/25/16 18:00 85 14 134/77 Intake and Output 12/25/16 12/26/16 12/26/16 22:59 06:59 14:59 Intake Total 500 1418.457 69.335 Balance 500 1418.457 69.335 Intake: Amount of Fluid Infused ( 500 ml) Intake, IV Titration 1418.457 69.335 Amount Heparin Sodium,Porcine/ 68.457 69.335 D5w Pmx 25,000 unit In Dextrose/Water 1 500ml. bag @ 12 UNITS/KG/HR 9.53 mls/hr IV .Q24H YRIS Rx#: [id number] Levofloxacin 750Mg-D5w 150 Pmx 750 mg In Dextrose/ Water 1 150ml.bag @ 100 mls/hr IVPB Q24H YRIS Rx#: [id number] Piperacillin-Tazobactam 3 50 .375 gm In Dextrose/Water 1 50ml.bag @ 12.5 mls/hr IVPB ONCE STA Rx#: [id number] Piperacillin-Tazobactam 3 50 .375 gm In Dextrose/Water 1 50ml.bag @ 12.5 mls/hr IVPB Q8HR YRIS Rx#: [id number] Sodium Chloride 0.9% 1, 1100 000 ml @ 100 mls/hr IV . Q10H STA Rx#:[id number] Other: Voiding Method Bedside Commode Bedside Commode Bedpan # Voids 0 # Bowel Movements 1 Weight 39.735 kg 38.5 kg PHYSICAL EXAMINATION: Patient is frail and very thin with a BMI of 14.6 HEENT: Head is atraumatic, normocephalic. Pupils equal, round. There is no elevated jugular venous pressure. HEART EXAMINATION: Heart sounds regular, S1 and S2 normal. No murmur or gallop heard. CHEST EXAMINATION: Lungs reveal diminished air entry bilaterally and faint crackles at bilateral bases. No chest wall tenderness is noted on palpation or with deep breathing. ABDOMEN: Soft, nontender. Bowel sounds are heard. No organomegaly noted. EXTREMITIES: 2+ peripheral pulses with no evidence of peripheral edema and no calf tenderness noted. NEUROLOGIC patient is awake and alert. . Results 12/26/16 06:06 12/25/16 16:27 Cardiac Enzymes 12/25/16 12/26/16 Range/Units 22:34 06:06 CK-MB (CK-2) 1.8 1.8 (0.0-2.4) ng/mL Troponin I 0.037 H* 0.024 (0.000-0.034) ng/mL Coagulation 12/26/16 12/26/16 Range/Units 00:17 06:06 APTT 31.0 H 34.5 H (22.0-30.0) sec Lipids 12/26/16 Range/Units 06:06 Triglycerides 97 (<150) mg/dL Cholesterol 110 (<200) mg/dL HDL Cholesterol 43 (40-60) mg/dL CBC 12/26/16 Range/Units 06:06 Plt Count 281 (150-450) k/uL Current Medications Generic Name Dose Route Start Last Admin Trade Name Freq PRN Reason Stop Dose Admin Albuterol/Ipratropium 3 ml 12/25/16 20:00 12/26/16 08:24 Duoneb 0.5 Mg-3 Mg/3 Ml Soln INHALATION 3 ml RT-Q4H YRIS Administration Amitriptyline HCl 50 mg 12/25/16 21:00 12/25/16 21:09 Elavil PO 50 mg HS YRIS Administration Amlodipine Besylate 5 mg 12/26/16 09:00 12/26/16 09:27 Norvasc PO 5 mg DAILY YRIS Administration Aspirin 325 mg 12/26/16 09:00 Aspirin PO DAILY YRIS Atorvastatin Calcium 80 mg 12/26/16 09:00 Lipitor PO DAILY YRIS Heparin Sodium (Porcine) 0 unit 12/25/16 17:49 12/26/16 01:21 Heparin IV 2,384 unit Q6HR PRN Administration Low PTT Protocol Heparin Sodium/Dextrose 25,000 500 mls @ 9.53 mls/hr 12/25/16 18:00 12/26/16 07:11 unit/ IV Solution IV 18 units/kg/hr .Q24H YRIS 14.3 mls/hr Protocol Titration 12 UNITS/KG/HR Levofloxacin 750 mg/ IV 150 mls @ 100 mls/hr 12/26/16 18:00 Solution IVPB Q24H YRIS Piperacillin/Tazobactam/ 50 mls @ 12.5 mls/hr 12/26/16 00:00 12/26/16 09:26 Dextrose 3.375 gm/ IV Solution IVPB 12.5 mls/hr Q8HR YRIS Administration Levetiracetam 750 mg 12/25/16 20:30 12/26/16 09:26 Keppra PO 750 mg Q12H YRIS Administration Loratadine 10 mg 12/26/16 09:00 12/26/16 09:27 Claritin PO 10 mg DAILY YRIS Administration Lorazepam 2 mg 12/25/16 22:00 12/26/16 09:31 Ativan PO 2 mg QID YRIS Administration Metoprolol Tartrate 50 mg 12/25/16 21:00 12/26/16 09:27 Lopressor PO 50 mg BID YRIS Administration Multivitamins 1 each 12/26/16 09:00 12/26/16 09:27 Theragran PO 1 each DAILY YRIS Administration Nitroglycerin 0.4 mg 12/25/16 17:49 Nitrostat SUBLINGUAL Q5M PRN Chest Pain Oxybutynin Chloride 5 mg 12/26/16 09:00 12/26/16 09:27 Ditropan PO 5 mg DAILY YRIS Administration Pantoprazole Sodium 40 mg 12/26/16 07:30 12/26/16 06:14 Protonix PO 40 mg [id number] YRIS Administration Tramadol HCl 50 mg 12/25/16 20:28 12/26/16 06:14 Ultram PO 50 mg Q6HR PRN Administration Pain Intake and Output 12/25/16 12/26/16 12/26/16 22:59 06:59 14:59 Intake Total 500 1418.457 69.335 Balance 500 1418.457 69.335 Intake: Amount of Fluid Infused ( 500 ml) Intake, IV Titration 1418.457 69.335 Amount Heparin Sodium,Porcine/ 68.457 69.335 D5w Pmx 25,000 unit In Dextrose/Water 1 500ml. bag @ 12 UNITS/KG/HR 9.53 mls/hr IV .Q24H YRIS Rx#: [id number] Levofloxacin 750Mg-D5w 150 Pmx 750 mg In Dextrose/ Water 1 150ml.bag @ 100 mls/hr IVPB Q24H YRIS Rx#: [id number] Piperacillin-Tazobactam 3 50 .375 gm In Dextrose/Water 1 50ml.bag @ 12.5 mls/hr IVPB ONCE STA Rx#: [id number] Piperacillin-Tazobactam 3 50 .375 gm In Dextrose/Water 1 50ml.bag @ 12.5 mls/hr IVPB Q8HR YRIS Rx#: [id number] Sodium Chloride 0.9% 1, 1100 000 ml @ 100 mls/hr IV . Q10H STA Rx#:[id number] Other: Voiding Method Bedside Commode Bedside Commode Bedpan # Voids 0 # Bowel Movements 1 Weight 39.735 kg 38.5 kg 12/26/16 06:06 EKG Interpretations (text) Sinus rhythm with a left bundle branch block Assessment and Plan Plan: Assessment and plan #1 chest pain, atypical #2 pneumonia #3 UTI #4 history of paroxysmal atrial fibrillation, anticoagulated #5 history of CVA #6 COPD #7 mitral valve prolapse From cardiology's perspective, we will obtain a 2-D echo. Chest Xray shows evidence of possible mild CHF. We will give the patient one dose of lasix 40mg IVP. Repeat CXR in the morning and possibly start the patient on po lasix. Continue to follow the patient's labs and clinical status. Further recommendations to follow. SCARRER note has been reviewed, I agree with a documented findings and plan of care. Patient was seen and examined.
[2016-12-26] MEDS ORDERED: FUROSEMIDE 10 MG/ML 4 ML VIAL IV STA (13:10)
[2016-12-26] MEDS: ATORVASTATIN 80 MG TAB PO SCH (13:57)
[2016-12-26] MEDS: ASPIRIN 325 MG TAB PO SCH (13:57)
--- NOTE | 2016-12-26 15:05 | P.HPIM ---
History of Present Illness H&P Date: 12/26/16 Chief Complaint: Chest pain This is a 71-year-old female who presented via the EMS system to be evaluated for chest pain. Patient is a poor historian. Patient gives no prior history of chest pain. Patient stated the pain radiated to her back. Patient is a thin cachectic looking older than 71-year-old female. Patient stated the chest pain occurred at rest and there were no other associated symptoms. Also reportedly was experiencing a cough. Patient does have a prior history of having a prior CVA resulting in left upper extremity weakness with very little movement. Patient medical records indicates she has a history of COPD, hypertension, DVT and paroxysmal atrial fibrillation in which the patient is currently on savaysa. 12-lead EKG on admission showed sinus with a left bundle branch block which has been seen on previous EKGs currently patient is sitting up in bed and appears in no acute distress is indicating and not having chest pain Patient has limited mobility uses a wheelchair lives at [facility] with assisted -living facility Review of Systems Unable to adequately obtain total adequate recall Past Medical History Past Medical History: COPD, CVA/TIA, Deep Vein Thrombosis (DVT), GERD/Reflux, Hyperlipidemia, Hypertension, Myocardial Infarction ([place]), Mitral Valve Prolapse (MVP), Osteoarthritis (OA), Pneumonia, Seizure Disorder, Syncope Additional Past Medical History / Comment(s): DVT L lower leg, CVA/TIA with L arm and L leg weakness, constipation, MVP, nephrolithiasis x 2-passed 1 stone, peptic ulcer disease, hiatal hernia, esophageal ulcer, djd,ddd lumbar area, chronic back pain, past L tibial fx and L hip fx, cellulitis L lower leg, UTIs, syncopy. Last Myocardial Infarction Date:: 2015 History of Any Multi-Drug Resistant Organisms: None Reported Past Surgical History: Orthopedic Surgery, Tonsillectomy Additional Past Surgical History / Comment(s): 08/2014 lap exam, LEFT HIP SX WITH NAILING, left eye implant- POST FACIAL INJURY, BRAIN SX R/T ANEURYSM- HAD DRAIN IN NOW OUT, EGD and colonoscopy. Past Anesthesia/Blood Transfusion Reactions: No Reported Reaction Additional Past Anesthesia/Blood Transfusion Reaction / Comment(s): Claustrophobia Past Psychological History: Anxiety, Depression Additional Psychological History / Comment(s): Pt resides at [facility] assisted [facility]. Pt states she performs her own ADLs. She gets around in a wheelchair and transfers herself into the W/C. HAS BEEN TAKING ATIVAN FOR 35 YRS. Smoking Status: Former smoker Past Alcohol Use History: None Reported Additional Past Alcohol Use History / Comment(s): Pt started smoking in about 1998 and STOPPED SMOKING JUN 2015. She was a light smoker. Past Drug Use History: None Reported - Past Family History Mother Family Medical History: Hypertension Additional Family Medical History / Comment(s): heart problems. Mother at age 87yrs. Father History Unknown: Yes Additional Family Medical History / Comment(s): pt's dad left when she was a baby -no hx known. Medications and Allergies Home Medications Medication Instructions Recorded Confirmed Type LORazepam [Ativan] 2 mg PO QID 08/18/16 12/25/16 History Edoxaban Tosylate [Savaysa] 60 mg PO HS 11/24/16 12/25/16 History Multivitamins, Thera [Multivitamin] 1 tab PO DAILY 11/24/16 12/25/16 History Amitriptyline HCl [Elavil] 50 mg PO HS 12/25/16 12/25/16 History Metoprolol Tartrate [Lopressor] 50 mg PO BID 12/25/16 12/25/16 History Omeprazole 20 mg PO DAILY 12/25/16 12/25/16 History Oxybutynin Chloride [Ditropan] 5 mg PO DAILY 12/25/16 12/25/16 History amLODIPine [Norvasc] 5 mg PO DAILY 12/25/16 12/25/16 History levETIRAcetam [Keppra] 750 mg PO Q12H 12/25/16 12/25/16 History traMADol HCL [Ultram] 50 mg PO Q6HR PRN 12/25/16 12/25/16 History Allergies Allergy/AdvReac Type Severity Reaction Status Date / Time No Known Allergies Allergy Verified 12/25/16 17:25 Physical Exam Vitals: Vital Signs Temp Pulse Pulse Resp BP BP Pulse Ox 12/26/16 12:00 77 137/57 94 L 12/26/16 08:34 74 12/26/16 08:24 72 12/26/16 08:00 97.7 F 80 129/57 95 12/26/16 04:00 97.6 F 73 18 157/79 94 L 12/26/16 00:00 74 18 117/74 95 12/25/16 22:02 77 12/25/16 21:52 90 12/25/16 21:05 78 18 119/63 96 12/25/16 20:00 85 18 12/25/16 19:30 97.2 F L 85 18 150/82 96 12/25/16 19:00 97.5 F L 78 14 159/74 91 L 12/25/16 18:35 88 12/25/16 18:23 84 12/25/16 18:00 85 14 134/77 Intake and Output 12/25/16 12/26/16 12/26/16 22:59 06:59 14:59 Intake Total 500 1418.457 99.335 Balance 500 1418.457 99.335 Intake: Amount of Fluid Infused ( 500 ml) Intake, IV Titration 1418.457 69.335 Amount Heparin Sodium,Porcine/ 68.457 69.335 D5w Pmx 25,000 unit In Dextrose/Water 1 500ml. bag @ 12 UNITS/KG/HR 9.53 mls/hr IV .Q24H YRIS Rx#: [id number] Levofloxacin 750Mg-D5w 150 Pmx 750 mg In Dextrose/ Water 1 150ml.bag @ 100 mls/hr IVPB Q24H YRIS Rx#: [id number] Piperacillin-Tazobactam 3 50 .375 gm In Dextrose/Water 1 50ml.bag @ 12.5 mls/hr IVPB ONCE STA Rx#: [id number] Piperacillin-Tazobactam 3 50 .375 gm In Dextrose/Water 1 50ml.bag @ 12.5 mls/hr IVPB Q8HR YRIS Rx#: [id number] Sodium Chloride 0.9% 1, 1100 000 ml @ 100 mls/hr IV . Q10H STA Rx#:[id number] Oral 30 Other: Voiding Method Bedside Commode Bedside Commode Bedpan # Voids 0 # Bowel Movements 1 Weight 39.735 kg 38.5 kg 38.5 kg Patient Weight 12/27/16 06:59 Weight 38.5 kg GENERAL APPEARANCE: Thin underweight cachectic looking older than stated age 71- year-old female patient is alert, oriented, in no acute distress. VITAL SIGNS: Reviewed HEENT: Head is normocephalic and atraumatic. Pupils are equal and reactive. The nares are patent. Oropharynx is clear without lesions. NECK: Supple without lymphadenopathy. Traches midline. HEART: S1, S2. Regular rate and rhythm. Denying chest pain no murmur monitor sinus LUNGS: No crackles or wheezes are heard. Diminished at the bases otherwise adequate air movement ABDOMEN: Soft, nontender, nondistended with good bowel sounds. No peritoneal signs. No palpable organomegaly or masses. EXTREMITIES: Normal skin color and turgor. No cyanosis, rash, ulceration, clubbing or edema. Radial pedal pulses are 2/4 bilaterally. NEUROLOGICAL: No focal deficits. Strength and sensation are grossly intact. Results CBC & Chem 7: 12/26/16 06:06 12/25/16 16:27 Labs: Abnormal Lab Results - Last 24 Hours (Table) 12/25/16 12/26/16 12/26/16 Range/Units 22:34 00:17 05:12 APTT 31.0 H (22.0-30.0) sec POC Glucose (mg/dL) (75-99) mg/dL Troponin I 0.037 H* (0.000-0.034) ng/mL Urine Appearance Cloudy H (Clear) Urine Protein 1+ H (Negative) Urine Ketones Trace H (Negative) Urine Blood Large H (Negative) Urine Nitrate Positive H (Negative) Ur Leukocyte Esterase Large H (Negative) Urine RBC >182 H (0-5) /hpf Urine WBC 41 H (0-5) /hpf Urine Bacteria Many H (None) /hpf Urine Yeast (Budding) Few H (None) /hpf 12/26/16 12/26/16 12/26/16 Range/Units 06:06 08:24 09:09 APTT 34.5 H (22.0-30.0) sec POC Glucose (mg/dL) 40 L 108 H (75-99) mg/dL Troponin I (0.000-0.034) ng/mL Urine Appearance (Clear) Urine Protein (Negative) Urine Ketones (Negative) Urine Blood (Negative) Urine Nitrate (Negative) Ur Leukocyte Esterase (Negative) Urine RBC (0-5) /hpf Urine WBC (0-5) /hpf Urine Bacteria (None) /hpf Urine Yeast (Budding) (None) /hpf Microbiology - Last 24 Hours (Table) 12/26/16 05:12 Urine Culture - Preliminary Urine,Clean Catch Thrombosis Risk Factor Assmnt - Choose All That Apply Any of the Below Risk Factors Present?: Yes Each Factor Represents 1 point: Abnormal pulmonary function (COPD), Medical pt on bed rest, Serious lung disease incl. pneumonia (< 1month) Other Risk Factors: Yes Each Risk Factor Represents 2 Points: Age 61-74 years Each Risk Factor Represents 3 Points: History of DVT/PE Thrombosis Risk Factor Assessment Total Risk Factor Score: 8 Thrombosis Risk Factor Assessment Level: High Risk Assessment and Plan Plan: Impression Present on admission chest pain atypical features no evidence of acute coronary syndrome 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 Paroxysmal atrial fibrillation currently sinus on anticoagulation Present on admission UTI COPD Present on admission chest x-ray suspect bilateral pneumonia infiltrate Mitral valve prolapse Former smoker quit in June 2015 Chronic debilitated due to a prior CVA with left-sided weakness History of chronic postoperative pain syndrome opiate dependency Present on admission mild protein calorie malnutrition underweight BMI 14 suspect due to poor caloric intake Chronic constipation Mildly elevated troponin Plan Continue recommendations by cardiology service Continue recommendations by pulmonology Resume home meds as appropriate No IV access will need a PICC line Respiratory treatments as ordered repeat labs in the morning Further recommendations The above dictated assessment and findings were discussed with dr Mack Impression and the plan of care have been dictated as directed. India Pate nurse practitioner acting as a scribe for dr mack
[2016-12-26] MEDS ORDERED: LIDOCAINE 2% INJ 20 MG/ML (20 ML MDV) ONE (15:16)
[2016-12-26] MEDS ORDERED: LIDOCAINE 2% INJ 20 MG/ML SQ ONE (15:19)
--- NOTE | 2016-12-26 15:34 | IR ---
PICC LINE PLACEMENT: HISTORY: Infection requiring long-term antibiotic therapy PROCEDURE: Ultrasound and fluoroscopic guidance of PICC line placement. MOCK UP MAKER: COMPLICATIONS: None ANESTHESIA: 1. 1% Lidocaine locally. FINDINGS/TECHNIQUE: The procedure was explained to the patient. The risks, complications, benefits and alternatives were discussed and any questions were answered. Informed consent was obtained. The patient was placed supine on the fluoroscopic table and prepped and draped in the usual sterile [facility] ion. Utilizing a 21 gauge needle and sonographic and fluoroscopic guidance, access in the right bas ilic vein was achieved and there is placement of a 0.018 guidewire. The vein is patent. A 5-F. Cole th was placed over the guidewire. The guidewire and dilator were removed and a 5-F. Double lumen PIC C line was placed through the sheath with the tip at the level of the SVC. The sheath was removed, t he catheter was flushed and sutured into position. The patient was stable throughout the procedure a nd remained stable upon discharge from the Department of Radiology. The vein puncture was patent under ultrasound. A parkinson scale image was obtained to document patency of the vein punctured. All elements of the maximal barrier technique were utilized. FLUOROSCOPY TIME: 0.1 minute IMPRESSION: Successful PICC double lumen line placement under ultrasound and fluoroscopic guidance.
[2016-12-26] MEDS: LEVOFLOXACIN 750MG-D5W PMX 750 MG in DEXTROSE/WATER 1 150ML.BAG IVPB SCH (17:34)
[2016-12-26] MEDS: AMITRIPTYLINE HCL 50 MG TAB PO SCH (21:20)
[2016-12-26] MEDS: EDOXABAN TOSYLATE 60 MG TABLET PO SCH (21:22)
[2016-12-27] MEDS: IPRATROPIUM-ALBUTEROL 3 ML NEB INHALATION SCH ×6 (00:03→23:03)
[2016-12-27] MEDS: PIPERACILLIN-TAZOBACTAM 3.375 GM in DEXTROSE/WATER 1 50ML.BAG IVPB SCH ×4 (01:35→23:12)
[2016-12-27 07:00] LABS: Mean Platelet Volume 7.8
[2016-12-27] MEDS: ASPIRIN 325 MG TAB PO SCH (09:18)
[2016-12-27] MEDS: amLODIPine 5 MG TAB PO SCH (09:18)
[2016-12-27] MEDS: PANTOPRAZOLE 40 MG TABLET PO SCH (09:18)
[2016-12-27] MEDS: LORATADINE 10 MG TAB PO SCH (09:19)
[2016-12-27] MEDS: MULTIVITAMINS, THERA 1 EACH TAB PO SCH (09:19)
[2016-12-27] MEDS: METOPROLOL TARTRATE 50 MG TAB PO SCH ×2 (09:19→20:39)
[2016-12-27] MEDS: EDOXABAN TOSYLATE 60 MG TABLET PO SCH (09:19)
[2016-12-27] MEDS: OXYBUTYNIN CHLORIDE 5 MG TAB PO SCH (09:19)
[2016-12-27] MEDS: ATORVASTATIN 80 MG TAB PO SCH (09:19)
[2016-12-27] MEDS: traMADol 50 MG TAB PO PRN ×3 (09:22→21:29)
[2016-12-27] MEDS: LORazepam 1 MG TAB PO SCH ×4 (09:22→21:29)
[2016-12-27] MEDS: HEPARIN SODIUM,PORCINE/D5W PMX 25,000 UNIT in DEXTROSE/WATER 1 500ML.BAG IV SCH (09:31)
--- NOTE | 2016-12-27 10:08 | XR ---
EXAMINATION TYPE: XR chest 2V DATE OF EXAM: 12/27/2016 10:04 AM COMPARISON: 12/25/2016 TECHNIQUE: PA and lateral views submitted. HISTORY: Pneumonia FINDINGS: Hyperinflation compatible COPD. Persistent basilar consolidation greater on the left. PICC line appea rs in good position. No pneumothorax. Chronic rib deformities noted. Mild diffuse osteopenia and arth ropathy of the right shoulder. IMPRESSION: 1. Stable basilar infiltrate
--- NOTE | 2016-12-27 13:50 | CONS ---
DATE OF CONSULTATION: DATE OF SERVICE: 12/27/2016 HISTORY OF PRESENT ILLNESS: The patient is a 71-year-old female who is brought in for problems with chest pain that radiated to her back. The patient states that she has been having problems with nonproductive cough and that where she resides they did not have electricity nor heat and had to keep their room doors open in order to get heat from the hallway. The patient is cachectic. She is denying any chest pain at this time. She continues to have problems with nonproductive cough. Her EKG shows a left bundle branch block. 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 Her x-ray is suggestive of bilateral infiltrates with pneumonia and also appears that she probably has UTI. She did get a PICC line yesterday. ALLERGIES: None known. Home medications include: 1. Ultram 50 mg every 6 hours as needed. 2. Keppra 750 mg every 12 hours. 3. Norvasc 5 mg daily. 4. Ditropan 5 mg daily. 5. Omeprazole 20 mg daily. 6. Multivitamin daily. 7. Lopressor 50 mg twice a day. 8. Claritin 10 mg daily. 9. Ativan 2 mg q.i.d. 10. Savaysa 60 mg at bedtime. 11. Elavil 50 mg at bedtime. Family history is significant for mother dying at the age of 87 from complications from coronary artery disease. Father's history is unknown. She never knew him. SOCIAL HISTORY: The patient is . She has 4 children, 2 boys and 2 girls, all alive and well. She did smoke for about 16 years. She classified herself as a light smoker. No alcohol abuse. No recreational drug use. No weed. She does use wheelchair. She wears glasses and dentures though her dentures are not with her. She used to work in real estate. PAST SURGICAL HISTORY: Significant for left tibia repair, left hip replacement, left eye implant, brain aneurysm repair, tonsillectomy, laparoscopic surgery, EGD, colonoscopy. Past medical history is significant for claustrophobia, esophageal ulcer, chronic back pain, cellulitis to left lower extremity, hiatal hernia, DJD, DDD, peptic ulcer disease, constipation, nephrolithiasis x2, left lower extremity DVT, hypertension, COPD, CVA affecting the left side upper and lower extremity weakness, paroxysmal atrial fibrillation, GERD, hyperlipidemia, anxiety, depression, osteoarthritis, pneumonia, UTI, RI, MVP, seizures and syncopal episode. Review of systems was completed with patient. Head to toe assessment was done and is negative other than what is noted in her HPI. On physical examination, vital signs show temperature of 98.7, heart rate 76, respiratory rate 22, blood pressure is 125/86, oxygen saturation 93% on room air. Labs for today show platelet count 331. On admission, her urine showed positive nitrates, large amount of blood, trace ketones, 1+ protein, large leukocyte esterase, bacteria many, yeast few. Blood cultures are negative. Urine culture shows no growth. GENERAL: She is a 71-year-old female who is cachectic in appearance, appears older than her stated age. HEENT: Head is atraumatic, normocephalic. Pupils are equal, reactive. Mucous membranes are moist. Neck is supple. Trach is midline. No lymphadenopathy. Lung sounds are diminished throughout. No significant rales, rhonchi, or wheezes heard at this time. Minimal air exchange at bases. CARDIOVASCULAR: S1 and S2 is heard, irregular at times. ABDOMEN: Soft, nontender. Bowel sounds are present. No obvious masses or organomegaly are palpated. No rebound or rigidity. EXTREMITIES: With no edema. Dorsalis pedis pulses palpable. NEUROLOGIC: She is awake, alert. IMPRESSION: 1. Atypical type of chest pain on admission. 2. Suspect bilateral pneumonia. 3. Acute on chronic exacerbation of chronic obstructive pulmonary disease. 4. Urinary tract infection. 5. Paroxysmal atrial fibrillation. 6. Mitral valve prolapse. 7. History of cerebrovascular accident with left-sided weakness. PLAN: Patient's medications have been reviewed. Continue with medications as ordered. Continue with antibiotic therapy. Continue with nebulizer treatments. Continue with anticoagulant. Continue with GI and DVT prophylaxis. Await echocardiogram results. Thank you for the consultation. We will continue to follow patient closely with you and make further changes as necessary.
[2016-12-27] MEDS: LEVOFLOXACIN 750MG-D5W PMX 750 MG in DEXTROSE/WATER 1 150ML.BAG IVPB SCH (20:38)
[2016-12-27] MEDS: AMITRIPTYLINE HCL 50 MG TAB PO SCH (20:39)
--- NOTE | 2016-12-27 21:40 | PN ---
DATE OF SERVICE: 12/27/2016 SUBJECTIVE: A 71-year-old white female with atypical chest pain, right lower lobe pneumonia; thin, cachectic, poor ambulation. She has bilateral infiltrates on chest x-ray. Pulmonary consult saw the patient today. Cardiology is seeing her. Negative troponins. Lungs show diminished air sounds, scattered rhonchi, wheeze. CARDIOVASCULAR: S1 and S2. ABDOMEN: Soft, nontender. NEUROLOGIC: Alert and oriented x3. ASSESSMENT: 1. Atypical chest pain, suspect bilateral pneumonia. 2. Acute on chronic obstructive pulmonary disease. 3. Urinary tract infection. 4. Paroxysmal atrial fibrillation. 5. Mitral valve prolapse. 6. History of cerebrovascular accident, left-sided weakness. Continue with IV antibiotics, updraft treatments. She will need to go to a rehab center. She requests [facility] on the [place]. She will be discharged Thursday or Thursday.
[2016-12-28] MEDS: IPRATROPIUM-ALBUTEROL 3 ML NEB INHALATION SCH ×5 (03:15→19:52)
[2016-12-28] MEDS: METOPROLOL TARTRATE 50 MG TAB PO SCH ×2 (08:17→21:44)
[2016-12-28] MEDS: MULTIVITAMINS, THERA 1 EACH TAB PO SCH (08:17)
[2016-12-28] MEDS: EDOXABAN TOSYLATE 60 MG TABLET PO SCH (08:17)
[2016-12-28] MEDS: LORazepam 1 MG TAB PO SCH ×4 (08:17→21:44)
[2016-12-28] MEDS: OXYBUTYNIN CHLORIDE 5 MG TAB PO SCH (08:18)
[2016-12-28] MEDS: amLODIPine 5 MG TAB PO SCH (08:18)
[2016-12-28] MEDS: PANTOPRAZOLE 40 MG TABLET PO SCH (08:18)
[2016-12-28] MEDS: ATORVASTATIN 80 MG TAB PO SCH (08:18)
[2016-12-28] MEDS: ASPIRIN 325 MG TAB PO SCH (08:18)
[2016-12-28] MEDS: LORATADINE 10 MG TAB PO SCH (08:19)
[2016-12-28 08:23] LABS: Basophils % (A) 1 %; CH 31.8; CHCM 31.1; Eosinophils # (A) 0.2 k/uL (0-0.7); Eosinophils % (A) 3 %; HCT 39.2 % (34.0-46.0); HDW 2.22; Luc # (Auto) 0.17; Luc % (Auto) 3; Lymphocytes # (A) 1.1 k/uL (1.0-4.8); Lymphocytes % (A) 19 %; MCH 31.5 pg (25.0-35.0); MCHC 30.6 g/dL (31.0-37.0); MCV 102.7 fL (80.0-100.0); Macrocytosis Slight; Mean Platelet Volume 7.4; Monocytes # (A) 0.4 k/uL (0-1.0); Monocytes % (A) 7 %; Neutrophils # (A) 3.9 k/uL (1.3-7.7); Neutrophils % (A) 68 %; RBC 3.81 m/uL (3.80-5.40); RDW 13.8 % (11.5-15.5); WBC 5.7 k/uL (3.8-10.6); WBC (Perox) 5.86
[2016-12-28 08:37] LABS: ALT 18 U/L (9-52); AST 17 U/L (14-36); Alkaline Phosphatase 64 U/L (38-126); Anion Gap 12 mmol/L; Blood Urea Nitrogen 20 mg/dL (7-17); Carbon Dioxide 26 mmol/L (22-30); Chloride 104 mmol/L (98-107); Glucose 92 mg/dL (74-99); Magnesium 1.7 mg/dL (1.6-2.3); Non-African American GFR(MDRD) >60 (>60 ml/min/1.73 sqM); Potassium 4.2 mmol/L (3.5-5.1); Sodium 142 mmol/L (137-145); Total Bilirubin 0.4 mg/dL (0.2-1.3); Total Protein 6.5 g/dL (6.3-8.2)
[2016-12-28] MEDS: PIPERACILLIN-TAZOBACTAM 3.375 GM in DEXTROSE/WATER 1 50ML.BAG IVPB SCH ×3 (09:32→23:06)
[2016-12-28] MEDS: traMADol 50 MG TAB PO PRN (10:14)
--- NOTE | 2016-12-28 13:55 | XR ---
EXAMINATION TYPE: XR chest 2V DATE OF EXAM: 12/28/2016 1:42 PM COMPARISON: Chest x-ray from yesterday. HISTORY: Pneumonia progress study. TECHNIQUE: Frontal and lateral views of the chest are obtained. FINDINGS: A left-sided PICC line is stable in appearance. There is chronic parenchymal change with p ersistent bibasilar opacities. There is no new focal airspace opacity, pleural effusion, or pneumotho rax seen bilaterally. The cardiac silhouette size is within normal limits. The osseous structures a re intact. IMPRESSION: Persistent bibasilar infiltrate and/or atelectasis. No significant change from prior. No new infiltrate is seen.
[2016-12-28 14:08] LABS: Creatine Kinase MB 1.2 ng/mL (0.0-2.4); Troponin I 0.045 ng/mL (0.000-0.034)
[2016-12-28] MEDS ORDERED: RX INFO: IV CONTRAST WAS GIVEN 1 EACH MISC MISCELLANE PRN (14:12)
--- NOTE | 2016-12-28 14:12 | PN ---
DATE OF SERVICE: 12/28/2016 HISTORY OF PRESENT ILLNESS: Patient is a 71-year-old female who came in with problems with chest pain radiating to her back and problems with nonproductive cough. She did not have any heat at the residence that she was residing at and the only places that were heated by generator was the hallway and their eating room. Patient was complaining again of some chest pain and discomfort. She did have an EKG done, which is similar to her EKG done in ER where she still has left bundle branch block noted. She appears to be coughing somewhat more today though mostly nonproductive. She has had no nausea or vomiting. She also is complaining of back pain. It has been recommended that she have rehab and she is questioning whether she really needs this which certainly patient would be able to benefit from since she is quite cachectic and weak. She denies any nausea, vomiting or diarrhea at this time. On physical examination, her vital signs show temperature of 98.9, heart rate 76, respiratory rate 17, blood pressure is 98/59, oxygen saturation on room air is 91%. LABS: WBC's are 5.7, hemoglobin 12, hematocrit 39.2, platelets are 293. Sodium is 142, potassium 4.2, chloride is 104, carbon dioxide is 26, BUN 20, creatinine is 0.71, glucose 92, calcium is 9, magnesium 1.7. Total bilirubin 0.4, AST 17, ALT 18, alkaline phosphatase is 64, total protein 6.5, albumin 3.2. Blood cultures with no growth. Urine with no growth. GENERAL: She is a 71-year-old female with occasional cough, very cachectic in appearance. HEENT: Pupils are reactive. Mucous membranes somewhat dry. Poor oral hygiene. Neck is supple. Trach is midline. No JVD. Lung sounds are diminished throughout. CARDIOVASCULAR: S1 and S2 is heard, regular. Abdomen is soft, nontender. Bowel sounds heard. EXTREMITIES: No edema. Dorsalis pedis pulses palpable. NEUROLOGIC: She is awake, alert. IMPRESSION: 1. Atypical type chest pain where she has a left bundle branch block on EKG. 2. Questionable pneumonia. 3. Acute on chronic exacerbation of chronic obstructive pulmonary disease. 4. Urinary tract infection. 5. Paroxysmal atrial fibrillation. 6. Mitral valve prolapse. 7. History of cerebrovascular accident with left-sided weakness. PLAN: Agree with rehab placement, continue her medications as ordered. We will order a chest x-ray. Continue with anticoagulants and GI and DVT prophylaxis. Increase activity as tolerated. Continue with oxygen to keep sats 92% or better. Will continue with supportive care. KAE
[2016-12-28] MEDS: HYDROcodone/APAP 5-325MG 1 EACH TAB PO PRN (17:04)
[2016-12-28] MEDS: LEVOFLOXACIN 750 MG TAB PO SCH (17:04)
[2016-12-28] MEDS ORDERED: DIAZEPAM 5 MG/ML 2 ML SYRINGE IVP STA (17:10)
[2016-12-28] MEDS ORDERED: IPRATROPIUM-ALBUTEROL 3 ML NEB INHALATION PRN (18:57)
--- NOTE | 2016-12-28 19:01 | CT ---
EXAMINATION TYPE: CT chest angio for PE DATE OF EXAM: 12/28/2016 6:32 PM COMPARISON: Prior CTA chest 12/16/2015 HISTORY: No complaints at time of scan. Shortness of breath rule out pulmonary embolism CT DLP: 146 mGycm. Automated Exposure Control for Dose Reduction was Utilized. CONTRAST: CTA scan of the thorax is performed with IV Contrast, patient injected with 100 mL of Omnipaque 350, pulmonary embolism protocol. MIP Images are created on CT scanner and reviewed. FINDINGS: LUNGS: Exam is suboptimal as is degraded by patient respiratory motion artifact. There is mild underl ronn emphysematous change redemonstrated. There are scattered nodules and nodular opacities seen bila terally most pronounced in the lower lungs slightly more suspicious on current exam. There is depende nt atelectasis and/or consolidation in the left lung base. No pleural effusion or pneumothorax is see n bilaterally. MEDIASTINUM: There is satisfactory enhancement of the pulmonary artery and its branches, there is no CT evidence for pulmonary embolism. There are prominent right hilar, AP window, and paratracheal lym ph nodes extending into anterior superior mediastinum. Tiny pericardial effusion is seen. Heart size is upper limits of normal. Coronary artery calcification is present. There is acute debris-filled pro minent esophagus without obstructing mass clearly seen. OTHER: Debris filled stomach is noted. Osseous structures are demineralized. Underlying scoliotic cur vature is present. There is left-sided PICC line with tip in SVC. IMPRESSION: Mild chronic emphysematous change with scattered reticulonodular infiltrates in bilateral lower lungs. Suspect acute infectious process. In addition there are scattered suspicious parenchyma l nodules bilaterally, consider septic emboli versus metastatic neoplasm. Clinical correlation advise d. No CT evidence for pulmonary embolism.
[2016-12-28] MEDS: AMITRIPTYLINE HCL 50 MG TAB PO SCH (22:24)
[2016-12-29] MEDS: traMADol 50 MG TAB PO PRN ×2 (00:14→21:26)
[2016-12-29] MEDS: PIPERACILLIN-TAZOBACTAM 3.375 GM in DEXTROSE/WATER 1 50ML.BAG IVPB SCH ×3 (08:49→23:33)
[2016-12-29] MEDS: EDOXABAN TOSYLATE 60 MG TABLET PO SCH (08:50)
[2016-12-29] MEDS: PANTOPRAZOLE 40 MG TABLET PO SCH (08:50)
[2016-12-29] MEDS: METOPROLOL TARTRATE 50 MG TAB PO SCH ×2 (08:50→21:19)
[2016-12-29] MEDS: amLODIPine 5 MG TAB PO SCH (08:50)
[2016-12-29] MEDS: ATORVASTATIN 80 MG TAB PO SCH (08:50)
[2016-12-29] MEDS: ASPIRIN 325 MG TAB PO SCH (08:50)
[2016-12-29] MEDS: MULTIVITAMINS, THERA 1 EACH TAB PO SCH (08:50)
[2016-12-29] MEDS: OXYBUTYNIN CHLORIDE 5 MG TAB PO SCH (08:50)
[2016-12-29] MEDS: LORATADINE 10 MG TAB PO SCH (08:50)
[2016-12-29] MEDS: LORazepam 1 MG TAB PO SCH ×4 (08:51→21:27)
--- NOTE | 2016-12-29 09:06 | PN ---
SUBJECTIVE: A 71-year-old white female who is having more chest pain this afternoon. CT of the chest was pulmonary embolism was ruled out, showed pulmonary infiltrates with some suspicious pulmonary nodules which pulmonary apparently is following. She remains on Levaquin and Zosyn and antibiotics will be negotiated for an outpatient therapy pending pulmonary impressions. Cardiology pretty much says her chest pain is noncardiac related despite left bundle branch block. Pulmonary ( ). ( ) the patient today, temperature 98.9, respiratory rate 17 to 20, heart rate 60s and 70s, blood pressure 90s to 100s over 50s to 60s, potassium 4.2, sodium 142, white blood cells 5.7, hemoglobin 12. Liver enzymes are reviewed. PHYSICAL EXAMINATION: 71-year-old white female, cachectic. Thin. MUSCULOSKELETAL: Difficulty moving her hips. CARDIOVASCULAR: S1, S2. EXTREMITIES: Normal dorsalis pedis, posterior tibial and radial pulse. NEUROLOGIC: Alert and oriented x3. ASSESSMENT: 1. Atypical chest pain. 2. Left bundle branch block. 3. Bilateral pneumonia. 4. Acute on chronic obstructive pulmonary disease exacerbation. 5. Pulmonary nodules. 6. Urinary tract infection. 7. Paroxysmal atrial fibrillation. 8. Mitral valve prolapse. 9. History of cerebrovascular accident with left-sided weakness. 10. History of hip surgery due to fracture of the metal in her hips. She wants to consult with orthopedics. Discussed removing metal from her body. Continue with IV antibiotics. Set her up for discharge to a intermediate in next few days, on IV antibiotics per pulmonary recommendations.
[2016-12-29] MEDS: IPRATROPIUM-ALBUTEROL 3 ML NEB INHALATION SCH ×4 (09:29→21:50)
--- NOTE | 2016-12-29 10:10 | P.CNOR ---
History of Present Illness - [facility] Consult date: 12/29/16 Requesting physician: Serafin Mills Consult reason: joint pain History of present illness: Patient is a pleasant 71-year-old female seen at bedside this morning. She is known to Dr. Serafin Mills in regards to her left hip. She had previous repair of her left hip where in 2014 Dr. Arceo placed an IT nail for a left hip fracture. She was admitted last March 2016 for multiple medical problems and continued hip pain where x-rays showed the intramedullary screw breaching the cortex of the femoral head and and possibly into the joint. It appears she has significant osteoporosis. Plan was to revise or perform Girdlestone procedure possibly however she had complications of multiple comorbidities at that time including a tibia fracture and multiple medical problems. Her recent admission is for chest pain and has been diagnosed with acute on chronic exacerbation of COPD, pneumonitis and possible septic emboli versus malignant processes in the lungs. She had a PICC line placed on this admission. She's had some intermittent continued hip pain. She also has a history of a CVA which left her with residual left-sided weakness. She denies any acute or new complaints today regarding her hip. She has no other complaints. Review of Systems All systems: negative Constitutional: Denies chills, Denies fever Eyes: denies blurred vision, denies pain Ears, nose, mouth and throat: Denies headache, Denies sore throat Cardiovascular: Denies chest pain, Denies shortness of breath Respiratory: Denies cough Gastrointestinal: Denies abdominal pain, Denies diarrhea, Denies nausea, Denies vomiting Genitourinary: Denies dysuria, Denies hematuria Musculoskeletal: Denies myalgias Integumentary: Denies pruritus, Denies rash Neurological: Reports weakness, Denies convulsions, Denies numbness Psychiatric: Denies anxiety, Denies depression Endocrine: Denies fatigue, Denies weight change Past Medical History Past Medical History: COPD, CVA/TIA, Deep Vein Thrombosis (DVT), GERD/Reflux, Hyperlipidemia, Hypertension, Myocardial Infarction (IL), Mitral Valve Prolapse (MVP), Osteoarthritis (OA), Pneumonia, Seizure Disorder, Syncope Additional Past Medical History / Comment(s): DVT L lower leg, CVA/TIA with L arm and L leg weakness, constipation, MVP, nephrolithiasis x 2-passed 1 stone, peptic ulcer disease, hiatal hernia, esophageal ulcer, djd,ddd lumbar area, chronic back pain, past L tibial fx and L hip fx, cellulitis L lower leg, UTIs, syncopy. Last Myocardial Infarction Date:: 2015 History of Any Multi-Drug Resistant Organisms: None Reported Past Surgical History: Orthopedic Surgery, Tonsillectomy Additional Past Surgical History / Comment(s): 08/2014 lap exam, LEFT HIP SX WITH NAILING, left eye implant- POST FACIAL INJURY, BRAIN SX R/T ANEURYSM- HAD DRAIN IN NOW OUT, EGD and colonoscopy. Past Anesthesia/Blood Transfusion Reactions: No Reported Reaction Additional Past Anesthesia/Blood Transfusion Reaction / Comm: Claustrophobia Past Psychological History: Anxiety, Depression Additional Psychological History / Comment(s): Pt resides at [facility]. Pt states she performs her own ADLs. She gets around in a wheelchair and transfers herself into the W/C. HAS BEEN TAKING ATIVAN FOR 35 YRS. Smoking Status: Former smoker Past Alcohol Use History: None Reported Additional Past Alcohol Use History / Comment(s): Pt started smoking in about 1998 and STOPPED SMOKING JUN 2015. She was a light smoker. Past Drug Use History: None Reported - Past Family History Mother Family Medical History: Hypertension Additional Family Medical History / Comment(s): heart problems. Mother at age 87yrs. Father History Unknown: Yes Additional Family Medical History / Comment(s): pt's dad left when she was a baby -no hx known. Medications and Allergies Home Medications Medication Instructions Recorded Confirmed Type LORazepam [Ativan] 2 mg PO QID 08/18/16 12/25/16 History Edoxaban Tosylate [Savaysa] 60 mg PO HS 11/24/16 12/25/16 History Multivitamins, Thera [Multivitamin] 1 tab PO DAILY 11/24/16 12/25/16 History Amitriptyline HCl [Elavil] 50 mg PO HS 12/25/16 12/25/16 History Metoprolol Tartrate [Lopressor] 50 mg PO BID 12/25/16 12/25/16 History Omeprazole 20 mg PO DAILY 12/25/16 12/25/16 History Oxybutynin Chloride [Ditropan] 5 mg PO DAILY 12/25/16 12/25/16 History amLODIPine [Norvasc] 5 mg PO DAILY 12/25/16 12/25/16 History levETIRAcetam [Keppra] 750 mg PO Q12H 12/25/16 12/25/16 History traMADol HCL [Ultram] 50 mg PO Q6HR PRN 12/25/16 12/25/16 History Allergies Allergy/AdvReac Type Severity Reaction Status Date / Time No Known Allergies Allergy Verified 12/25/16 17:25 Physical Examination Gen.: NAD AO 3 and underweight under recommended BMI Left lower extremity: Inspection of the left lower extremity shows no acute wounds, erythema or ecchymoses. She has a thin left lower extremity. She is able to raise her left leg against gravity off the bed. She has minimal pain with passive range of motion of the hip including internal rotation and external rotation of 20. Passive range of motion with hip flexion to 80 is minimally painful as well. She has chronic left foot drop. She has sensation to light touch intact throughout the left lower extremity. Calf is soft and nontender. 1+ dorsalis pedis pulse present and less than 2 second cap refill present. Results - Labs Labs: Abnormal Lab Results - Last 24 Hours (Table) 12/28/16 Range/Units 12:48 Troponin I 0.045 H* (0.000-0.034) ng/mL Microbiology - Last 24 Hours (Table) 12/25/16 18:27 Blood Culture - Preliminary Blood No Growth after 72 hours H & H 12/28/16 Range/Units 07:24 Hgb 12.0 (11.4-16.0) gm/dL Hct 39.2 (34.0-46.0) % Result Diagrams: 12/28/16 07:24 12/28/16 07:24 Assessment and Plan (1) Left hip pain Narrative/Plan: This patient has been reviewed with Dr. Serafin Mills. There doesn't appear to be any acute or emergent processes involving her left hip. There are no urgent plans for surgical intervention. Once she has cleared her current infectious processes and stabilized comorbidities, she may follow-up as an outpatient for further recommendations regarding her left hip. Would also recommended continued nutrition supplementation including calcium plus vitamin D and possible bone enhancing medication. Thank you for the consult. Status: Acute Time with Patient: Less than 30
--- NOTE | 2016-12-29 10:54 | P.PN ---
Subjective Patient complains of sharp left-sided chest pain that seems musculoskeletal. She is a poor historian and is somewhat confused at rest. Objective - Vital Signs Vital signs: Vital Signs Temp 98.3 F 12/29/16 07:00 Pulse 84 12/29/16 09:44 Resp 16 12/29/16 07:00 BP 114/65 12/29/16 07:00 Pulse Ox 92 L 12/29/16 07:00 Intake & Output 12/28/16 12/29/16 12/29/16 18:59 06:59 18:59 Intake Total 240 50 240 Balance 240 50 240 Weight 36.5 kg Intake: Intake, IV Titration 50 Amount Piperacillin-Tazobactam 3 50 .375 gm In Dextrose/Water 1 50ml.bag @ 12.5 mls/hr IVPB Q8HR [facility] Rx#: [id number] Oral 240 240 Other: Voiding Method Bedside Commode Bedside Commode # Voids 0 1 # Bowel Movements 0 0 - Exam Comfortable at rest chest exam reveals diminished air entry at the bases heart exam reveals first and second heart sounds and a systolic murmur at the left lower sternal border abdomen is soft exemption extremities did not reveal any edema peripheral pulses are palpable - Labs CBC & Chem 7: 12/28/16 07:24 12/28/16 07:24 Labs: Abnormal Lab Results - Last 24 Hours (Table) 12/28/16 Range/Units 12:48 Troponin I 0.045 H* (0.000-0.034) ng/mL Microbiology - Last 24 Hours (Table) 12/25/16 18:27 Blood Culture - Preliminary Blood No Growth after 72 hours Assessment and Plan Plan: Atypical chest pain Paroxysmal atrial fibrillation I agree with the current management plans. No further recommendations at this time. It is a mild troponin elevation of no clear clinical significance. It patient's EKG shows left bundle branch block.
--- NOTE | 2016-12-29 11:58 | ECHOF ---
Referral Reason:chest pain, history of MVP MEASUREMENTS -------- HEIGHT: 162.6 cm WEIGHT: 38.1 kg BP: 129/57 RVIDd: 2.3 cm (< 3.3) IVSd: 1.3 cm (0.6 - 1.1) LVIDd: 3.8 cm (3.9 - 5.3) LVPWd: 1.2 cm (0.6 - 1.1) IVSs: 1.6 cm LVIDs: 3.2 cm LVPWs: 1.4 cm LA Diam: 3.2 cm (2.7 - 3.8) LAESV Index (A-L): 28.12 ml/m Ao Diam: 2.8 cm (2.0 - 3.7) AV Cusp: 1.4 cm (1.5 - 2.6) LA Diam: 1.7 cm (2.7 - 3.8) MV EXCURSION: 10.672 mm (> 18.000) MV EF SLOPE: 100 mm/s (70 - 150) EPSS: 2.0 cm MV E Carlos: 0.49 m/s MV DecT: 151 ms MV A Carlos: 0.79 m/s MV E/A Ratio: 0.62 FINDINGS -------- Sinus rhythm. This was a technically good study. There is mild concentric left ventricular hypertrophy. Overall left ventricular systolic function is moderately impaired with, an EF between 35 - 40 %. Septal wall motion is delayed, and consistent with conduction delay/bundle branch block.ant septum is hypokinetic. The right ventricle is mildly enlarged. Normal LA size by volume 22+/-6 ml/m2. The right atrium is normal in size. Aortic valve is trileaflet and is mildly thickened. The mitral valve leaflets are mildly thickened. Mild mitral annular calcification present. There is trace to mild mitral regurgitation. The peak and mean MV gradients are 3.25mmHg 1.17mmHg as measured by doppler. Trace tricuspid regurgitation present. The pulmonic valve was not well visualized. The aortic root size is normal. Normal inferior vena cava with normal inspiratory collapse consistent with estimated right atrial pressure of 5 mmHg. There is no pericardial effusion. CONCLUSIONS -------- 1. Sinus rhythm. 2. The mitral valve leaflets are mildly thickened. 3. Mild mitral annular calcification present. 4. There is trace to mild mitral regurgitation. 5. The peak and mean MV gradients are 3.25mmHg 1.17mmHg as measured by doppler. 6. Trace tricuspid regurgitation present. 7. The pulmonic valve was not well visualized. 8. The aortic root size is normal. 9. Normal inferior vena cava with normal inspiratory collapse consistent with estimated right atrial pressure of 5 mmHg. 10. There is no pericardial effusion. 11. This was a technically good study. 12. There is mild concentric left ventricular hypertrophy. 13. Overall left ventricular systolic function is moderately impaired with, an EF between 35 - 40 %. 14. Septal wall motion is delayed, and consistent with conduction delay/bundle branch block. 15. The right ventricle is mildly enlarged. 16. Normal LA size by volume 22+/-6 ml/m2. 17. The right atrium is normal in size. 18. Aortic valve is trileaflet and is mildly thickened. ROLLER INSPECTOR: Irving Ospina RDCS
[2016-12-29 12:43] LABS: Glucose,Whole Blood 122 mg/dL (75-99)
[2016-12-29] MEDS: HYDROcodone/APAP 5-325MG 1 EACH TAB PO PRN (13:16)
[2016-12-29] MEDS: INSULIN LISPRO (humaLOG) 300 UNIT/3 ML VIAL SQ SCH ×3 (13:24→21:28)
[2016-12-29] MEDS: methylPREDNISolone SOD SUCCI 40 MG/ML 1 ML VIAL IV SCH ×3 (13:26→23:33)
[2016-12-29 13:50] LABS: Hemoglobin A1C 5.4 % (4.2-6.1)
--- NOTE | 2016-12-29 16:02 | P.PN ---
Subjective 71-year-old being seen this morning. Patient continues to report having left hip pain patient's been [facility] recommendations noted appreciated and reviewed Objective - Vital Signs Vital signs: Vital Signs Temp 98.3 F 12/29/16 07:00 Pulse 84 12/29/16 09:44 Resp 16 12/29/16 08:00 BP 114/65 12/29/16 07:00 Pulse Ox 92 L 12/29/16 07:00 Intake & Output 12/28/16 12/29/16 12/29/16 18:59 06:59 18:59 Intake Total 240 50 360 Balance 240 50 360 Weight 36.5 kg 36.5 kg Intake: Intake, IV Titration 50 Amount Piperacillin-Tazobactam 3 50 .375 gm In Dextrose/Water 1 50ml.bag @ 12.5 mls/hr IVPB Q8HR [facility] Rx#: [id number] Oral 240 360 Other: Voiding Method Bedside Commode Bedside Commode Bedside Commode # Voids 0 1 3 # Bowel Movements 0 0 0 - Exam Physical exam 71-year-old female thin cachectic underweight sitting up in bed Lungs diminished at the bases Heart S1-S2 audible regular Abdomen soft nontender Extremities the left lower extremity no acute wounds no redness no ecchymosis poor muscle tone is able to lift the left leg up off the mattress upper extremities poor muscle tone chronic left foot drop - Labs CBC & Chem 7: 12/28/16 07:24 12/28/16 07:24 Labs: Abnormal Lab Results - Last 24 Hours (Table) 12/29/16 Range/Units 12:25 POC Glucose (mg/dL) 122 H (75-99) mg/dL Microbiology - Last 24 Hours (Table) 12/25/16 18:27 Blood Culture - Preliminary Blood No Growth after 72 hours Assessment and Plan Plan: Impression Present on admission chest pain atypical features no evidence of acute coronary syndrome 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 Paroxysmal atrial fibrillation currently sinus on anticoagulation Present on admission UTI COPD Present on admission chest x-ray suspect bilateral pneumonia infiltrate Mitral valve prolapse Former smoker quit in June 2015 Chronic debilitated due to a prior CVA with left-sided weakness History of chronic postoperative pain syndrome opiate dependency Present on admission mild protein calorie malnutrition underweight BMI 14 suspect due to poor caloric intake Chronic constipation Mildly elevated troponin Present on admission left hip pain Plan Orthopedics recommendations conservative treatment there is no urgent plan for surgical intervention in regards to the left hip Continue recommendations by cardiology service Continue recommendations by pulmonology Resume home meds as appropriate No IV access will need a PICC line Respiratory treatments as ordered repeat labs in the morning Further recommendations The above dictated assessment and findings were discussed with dr Mack Impression and the plan of care have been dictated as directed. India Pate nurse practitioner acting as a scribe for dr mack
--- NOTE | 2016-12-29 17:28 | PN ---
DATE OF SERVICE: 12/29/2016 HISTORY OF PRESENT ILLNESS: Patient is a 71-year-old female who came in with problems with chest pain radiating to her back and problems with nonproductive cough, being treated for pneumonia. Patient did have a CT done yesterday to rule out pulmonary embolism, which was negative, though there is some question on her CT scan of suspicious scattered parenchymal nodules bilaterally and to consider septic emboli versus metastatic neoplasm. It also shows chronic emphysematous changes with scattered reticular nodule infiltrates in bilateral lower lungs with suspicion for acute infectious process where she is on appropriate antibiotics for atypical, pneumonia. She will be started on IV steroids in addition. Would recommend repeat CT scan in about 3 weeks. Will order needle biopsy to see if it can be done by Interventional Radiology. If they are unsuccessful, will consider doing bronchoscopy. Patient is seen. She is denying any significant problems with chest pain at this time. Nonproductive cough. She is denying any nausea, vomiting or diarrhea. On physical examination, vital signs show temperature 98.3, heart rate 84, respiratory rate 16. Blood pressure is 114/65. Oxygen saturation on room air is 92%. She has had noted elevated troponins. Cardiology has seen the patient ruled out any extensive cardiac workup needed at this time. Her labs for today showed glucose of 122. Blood cultures are negative. Urine culture is showing no growth. GENERAL: She is a 71-year-old cachectic-appearing female who appears in no acute respiratory distress at this time. HEENT: Pupils are reactive. Mucous membranes are moist. NECK: Supple. Trachea is midline. Lung sounds are diminished throughout. No obvious wheezes, rhonchi or rales heard at this time. CARDIOVASCULAR: S1, S2 heard. Appears regular. Systolic murmur. ABDOMEN: Soft, nontender. Bowel sounds are heard. EXTREMITIES: No edema. Dorsalis pedis pulses palpable. NEUROLOGIC: She is awake, alert. IMPRESSION: 1. Abnormal CT scan of lungs with further workup ordered. 2. Atypical type of chest pain. 3. Pneumonia. 4. Acute on chronic exacerbation chronic obstructive pulmonary disease. 5. Urinary tract infection. 6. Paroxysmal atrial fibrillation. 7. Mitral valve prolapse. 8. History of cerebrovascular accident with left-sided weakness. PLAN: Consult has been initiated for interventional radiologist to do a needle biopsy. If unsuccessful, will consider doing bronchoscopy. She needs to continue with antibiotic therapy, continue with nebulizer treatments as ordered, continue with GI and DVT prophylaxis. Continue with oxygen to keep her saturations 92% or better. She has been started on IV steroids, including glucose checks and insulin sliding scale as needed. HP panel has also been ordered and recommended that she have a repeat CT scan in about 3 weeks. She will need to follow up with Pulmonary on discharge. Also they are looking at rehab placement particularly to complete antibiotic therapy; she should be on a total of at least 10 days.
[2016-12-29 17:34] LABS: Glucose,Whole Blood 140 mg/dL (75-99)
[2016-12-29 21:06] LABS: Glucose,Whole Blood 227 mg/dL (75-99)
[2016-12-29] MEDS: AMITRIPTYLINE HCL 50 MG TAB PO SCH (21:19)
[2016-12-30 03:34] LABS: ANA w/Reflex to Titer POSITIVE (NEGATIVE)
[2016-12-30] MEDS: methylPREDNISolone SOD SUCCI 40 MG/ML 1 ML VIAL IV SCH ×3 (06:19→17:43)
[2016-12-30 07:38] LABS: Glucose,Whole Blood 175 mg/dL (75-99)
[2016-12-30] MEDS: IPRATROPIUM-ALBUTEROL 3 ML NEB INHALATION SCH ×4 (07:45→20:44)
[2016-12-30] MEDS: traMADol 50 MG TAB PO PRN ×2 (07:53→22:07)
[2016-12-30] MEDS: INSULIN LISPRO (humaLOG) 300 UNIT/3 ML VIAL SQ SCH ×4 (07:54→22:08)
[2016-12-30] MEDS: PIPERACILLIN-TAZOBACTAM 3.375 GM in DEXTROSE/WATER 1 50ML.BAG IVPB SCH ×2 (07:54→16:08)
[2016-12-30] MEDS: OXYBUTYNIN CHLORIDE 5 MG TAB PO SCH (07:55)
[2016-12-30] MEDS: ATORVASTATIN 80 MG TAB PO SCH (07:55)
[2016-12-30] MEDS: amLODIPine 5 MG TAB PO SCH (07:55)
[2016-12-30] MEDS: MULTIVITAMINS, THERA 1 EACH TAB PO SCH (07:55)
[2016-12-30] MEDS: METOPROLOL TARTRATE 50 MG TAB PO SCH ×2 (07:55→22:07)
[2016-12-30] MEDS: LORATADINE 10 MG TAB PO SCH (07:56)
[2016-12-30] MEDS: PANTOPRAZOLE 40 MG TABLET PO SCH (07:56)
[2016-12-30] MEDS: LORazepam 1 MG TAB PO SCH ×4 (07:59→22:07)
[2016-12-30 08:52] LABS: Mean Platelet Volume 7.8
[2016-12-30 08:55] LABS: INR 1.1 (<1.1); Prothrombin Time 11.1 sec (9.0-12.0)
[2016-12-30] MEDS ORDERED: EDOXABAN TOSYLATE 30 MG TABLET PO SCH (09:00)
--- NOTE | 2016-12-30 11:39 | CT ---
EXAMINATION TYPE: CT discontinued procedure and interventional radiology consult DATE OF EXAM: 12/30/2016 11:32 AM COMPARISON: Prior CT chest 28 December 2016 HISTORY: pulmonary nodule CT DLP: 108 mGycm Automated exposure control for dose reduction was used. Physical exam shows the patient in no apparent distress. Back is without lesions. Normal excursion wi th respiration. FINDINGS: The nodules are subcentimeters in size at the posterior lung bases. Nodules felt to be too small to a dequately and reliably sample. IMPRESSION: DISCONTINUED FINE-NEEDLE ASPIRATION OF LUNG NODULES. CONSIDER THORACIC SURGERY CONSULT.
[2016-12-30 11:51] LABS: Glucose,Whole Blood 167 mg/dL (75-99)
[2016-12-30] MEDS: HYDROcodone/APAP 5-325MG 1 EACH TAB PO PRN ×2 (11:51→17:42)
[2016-12-30 12:31] LABS: C-ANCA <1:20 Titer (<1:20); P-ANCA <1:20 Titer (<1:20)
[2016-12-30] MEDS ORDERED: RX INFO: IV CONTRAST WAS GIVEN 1 EACH MISC MISCELLANE PRN (12:55)
[2016-12-30] MEDS ORDERED: DIAZEPAM 5 MG/ML 2 ML SYRINGE IVP STA (12:56)
--- NOTE | 2016-12-30 13:40 | P.GSCN ---
<Yasmine Bo - Last Filed: 12/30/16 13:10> History of Present Illness Consult date: 12/30/16 Reason for Consult: lung nodules found on CT. Requesting physician: Masood Cornejo History of present illness: this 71-year-old female with a previous medical history of COPD, CVA, DVT, hyperlipidemia, hypertension, myocardial infarction, seizure disorder, pneumonia, and mitral valve prolapse presented to the emergency room on 3917 with complaints of chest pain with radiation to her back. She also had shortness of breath and increased cough, and apparently was recently hospitalized for COPD exacerbation with similar symptoms. A CT scan was ordered to rule out pulmonary embolism, which was indeed ruled out, but there appeared to be multiple lung nodules present bilaterally. Fine-needle aspiration of these nodules was attempted today, which was unsuccessful secondary to the small size of these nodules. Cardiothoracic surgery was consulted for consideration of surgical biopsy. Review of Systems 14 point review of systems was completed with assistance from 2 daughters at the bedside and was negative except as noted. - Cardiovascular Reports as per HPI - Respiratory Reports as per HPI - Musculoskeletal Musculoskeleta Comment(s): Patient hasn't walked since 2002, has residual left-sided weakness from stroke. - Neurological Reports gait dysfunction, Reports weakness - Psychiatric Psychiatric Comment(s): Severe claustrophobia Past Medical History Past Medical History: COPD, CVA/TIA, Deep Vein Thrombosis (DVT), GERD/Reflux, Hyperlipidemia, Hypertension, Myocardial Infarction (CT), Mitral Valve Prolapse (MVP), Osteoarthritis (OA), Pneumonia, Seizure Disorder, Syncope Additional Past Medical History / Comment(s): DVT L lower leg, CVA/TIA with L arm and L leg weakness, constipation, MVP, nephrolithiasis x 2-passed 1 stone, peptic ulcer disease, hiatal hernia, esophageal ulcer, djd,ddd lumbar area, chronic back pain, past L tibial fx and L hip fx, cellulitis L lower leg, UTIs, syncopy. Last Myocardial Infarction Date:: 2015 History of Any Multi-Drug Resistant Organisms: None Reported Past Surgical History: Orthopedic Surgery, Tonsillectomy Additional Past Surgical History / Comment(s): 08/2014 lap exam, LEFT HIP SX WITH NAILING, left eye implant- POST FACIAL INJURY, BRAIN SX R/T ANEURYSM- HAD DRAIN IN NOW OUT, EGD and colonoscopy. Past Anesthesia/Blood Transfusion Reactions: No Reported Reaction Additional Past Anesthesia/Blood Transfusion Reaction / Comm: Claustrophobia Past Psychological History: Anxiety, Depression Additional Psychological History / Comment(s): Pt resides at [facility]. Pt states she performs her own ADLs. She gets around in a wheelchair and transfers herself into the W/C. HAS BEEN TAKING ATIVAN FOR 35 YRS. Smoking Status: Former smoker Past Alcohol Use History: None Reported Additional Past Alcohol Use History / Comment(s): Pt started smoking in about 1998 and STOPPED SMOKING JUN 2015. She was a light smoker. Past Drug Use History: None Reported - Past Family History Mother Family Medical History: Hypertension Additional Family Medical History / Comment(s): heart problems. Mother at age 87yrs. Father History Unknown: Yes Additional Family Medical History / Comment(s): pt's dad left when she was a baby -no hx known. Medications and Allergies Home Medications Medication Instructions Recorded Confirmed Type Edoxaban Tosylate [Savaysa] 60 mg PO HS 11/24/16 12/25/16 History Multivitamins, Thera [Multivitamin 1 tab PO DAILY 11/24/16 12/25/16 History (formulary)] Amitriptyline HCl [Elavil] 50 mg PO HS 12/25/16 12/25/16 History Metoprolol Tartrate [Lopressor] 50 mg PO BID 12/25/16 12/25/16 History Omeprazole 20 mg PO DAILY 12/25/16 12/25/16 History Oxybutynin Chloride [Ditropan] 5 mg PO DAILY 12/25/16 12/25/16 History amLODIPine [Norvasc] 5 mg PO DAILY 12/25/16 12/25/16 History levETIRAcetam [Keppra] 750 mg PO Q12H 12/25/16 12/25/16 History Allergies Allergy/AdvReac Type Severity Reaction Status Date / Time No Known Allergies Allergy Verified 12/25/16 17:25 Surgical - Exam Vital Signs Temp Pulse Resp BP Pulse Ox 97.2 F L 94 18 146/76 95 12/25/16 16:23 12/25/16 16:23 12/25/16 16:23 12/25/16 16:23 12/25/16 16:23 - General no distress, cachectic - Neck no masses, no bruits, trachea midline - Respiratory Lungs sounds diminished bilaterally. Respirations even, nonlabored. Currently on room air. - Cardiovascular Rhythm: regular Heart Sounds: normal: S1, S2 - Abdomen Abdomen: soft, non tender, bowel sounds - Integumentary no rash, no growths - Musculoskeletal left-sided weakness. - Psychiatric oriented to time, oriented to person, oriented to place, speech is normal Results - Labs 12/30/16 08:19 12/28/16 07:24 Abnormal Lab Results - Last 24 Hours (Table) 12/29/16 12/29/16 12/29/16 Range/Units 14:50 16:55 21:05 POC Glucose (mg/dL) 140 H 227 H (75-99) mg/dL MATEO Screen POSITIVE H (NEGATIVE) 12/30/16 12/30/16 Range/Units 07:36 11:48 POC Glucose (mg/dL) 175 H 167 H (75-99) mg/dL MATEO Screen (NEGATIVE) Microbiology - Last 24 Hours (Table) 12/25/16 18:27 Blood Culture - Preliminary Blood No Growth after 96 hours Diabetes panel 12/29/16 Range/Units 11:12 Hemoglobin A1c 5.4 (4.2-6.1) % - Imaging Chest x-ray: report reviewed, image reviewed CT scan - chest: report reviewed, image reviewed Assessment and Plan (1) COPD (chronic obstructive pulmonary disease) Status: Acute (2) Chest pain Status: Acute Plan: 1. Patient not a good candidate for surgical intervention at this time. Would recommend repeat CT scan and/or bronchoscopy by pulmonology as per their recommendations. 2. If unable to do bronchoscopy or if no definitive diagnosis achieved, would recommend PET scan. 3. Continue antibiotics, nebulizer treatments, IV steroids per primary/ pulmonology service. 4. Supportive care. 5. Will monitor progress and make further recommendations as the need arises. Thank you Dr. Cornejo for this consult. We look forward to collaborating with you in the care of your patient. Time with Patient: Greater than 30 <Parminder Calvo - Last Filed: 01/25/17 12:24> Surgical - Exam Vital Signs Temp Pulse Resp BP Pulse Ox 97.2 F L 94 18 146/76 95 12/25/16 16:23 12/25/16 16:23 12/25/16 16:23 12/25/16 16:23 12/25/16 16:23 Results - Labs 12/30/16 08:19 12/30/16 14:15 Assessment and Plan Plan: The patient's computed tomography scan was personally reviewed. She appears to have multiple small nodules bilaterally. These are too small for needle biopsy per interventional radiology. At this point I do not believe she is a candidate for surgical biopsy. Would recommend repeating the CAT scan in about 3 months time to monitor progression. Bronchoscopy by pulmonary may also be an option. If we are still worried about malignancy, then a PET scan may be helpful. Otherwise continue with medical management per the primary service. There is no plan for surgical intervention at this time. Time with Patient: Greater than 30
--- NOTE | 2016-12-30 14:18 | P.PN ---
Progress Note - Text Attempted to see patient today, down for biopsy.
[2016-12-30] MEDS: IOHEXOL 350 MG/ML 25 ML BOTTLE (ORAL USE) PO PRN ×2 (14:50→15:52)
[2016-12-30 15:03] LABS: Anion Gap 14 mmol/L; Blood Urea Nitrogen 36 mg/dL (7-17); Calcium 9.6 mg/dL (8.4-10.2); Carbon Dioxide 28 mmol/L (22-30); Chloride 103 mmol/L (98-107); Glucose 146 mg/dL (74-99); Non-African American GFR(MDRD) >60 (>60 ml/min/1.73 sqM); Potassium 4.1 mmol/L (3.5-5.1); Sodium 145 mmol/L (137-145)
--- NOTE | 2016-12-30 15:24 | P.PN ---
Subjective 71 fragile thin cachectic looking older than stated age female resting in bed. Patient has multiple comorbidities. Patient has a past medical history significant for COPD, CVA, DVT, hyperlipidemia, hypertension seizure disorder and mitral valve prolapse. Patient presented to the emergency room on December 25 with a chief complaint of developing chest pain radiated into the back. CAT scan of the chest ruled out for evidence of a pulmonary emboli. But it did show multiple lung nodules bilaterally. Interventional radiology did attempt a fine needle aspiration of these nodules was unsuccessful secondary to the small size of the nodules. They recommended a cardiothoracic surgery consultation be obtained to consider a surgical biopsy of thesemultiple pulmonary nodules nodules Did note cardiovascular thoracic surgeon's recommendations indicate the patient not a good candidate for surgical intervention at this time. They recommended repeating the CAT scan and/or bronchoscopic by pulmonary. If not able to do bronchoscopically and no definitive diagnosis is obtained would recommend a PET scan. For now they would continue with the supportive care. editorial project manageraffiliate marketing manager worker is pursuing the discharge plan family is requesting subacute rehab Objective - Vital Signs Vital signs: Vital Signs Temp 98.4 F 12/30/16 07:00 Pulse 105 H 12/30/16 11:09 Resp 20 12/30/16 11:09 BP 134/96 12/30/16 11:09 Pulse Ox 95 12/30/16 11:09 Intake & Output 12/29/16 12/30/16 12/30/16 18:59 06:59 18:59 Intake Total 360 320 Balance 360 320 Weight 36.5 kg 34.1 kg Intake: Oral 360 320 Other: Voiding Method Bedside Commode Bedside Commode Bedside Commode Incontinent # Voids 1 3 # Bowel Movements 0 - Exam Physical exam 71-year-old female thin cachectic underweight sitting up in bed daughter is at bedside Lungs diminished at the bases no wheezing noted no shortness of breath noted no cough noted Heart S1-S2 audible regularpositive murmur Abdomen soft nontender not distended bowel tones present Extremities the left lower extremity no acute wounds no redness no ecchymosis poor muscle tone is able to lift the left leg up off the mattress upper extremities poor muscle tone chronic left foot drop - Labs CBC & Chem 7: 12/30/16 08:19 12/30/16 14:15 Labs: Abnormal Lab Results - Last 24 Hours (Table) 03/12/29/16 12/29/16 Range/Units 14:50 16:55 21:05 BUN (7-17) mg/dL Glucose (74-99) mg/dL POC Glucose (mg/dL) 140 H 227 H (75-99) mg/dL MATEO Screen POSITIVE H (NEGATIVE) 12/30/16 12/30/16 12/30/16 Range/Units 07:36 11:48 14:15 BUN 36 H (7-17) mg/dL Glucose 146 H (74-99) mg/dL POC Glucose (mg/dL) 175 H 167 H (75-99) mg/dL MATEO Screen (NEGATIVE) Microbiology - Last 24 Hours (Table) 12/25/16 18:27 Blood Culture - Preliminary Blood No Growth after 96 hours Assessment and Plan Plan: Impression Present on admission chest pain atypical features no evidence of acute coronary syndrome 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 Paroxysmal atrial fibrillation currently sinus on anticoagulation on savaysa Present on admission UTI acute on chronic exacerbation of acute COPD Present on admission chest x-ray suspect bilateral pneumonia infiltrate Mitral valve prolapse Former smoker quit in June 2015 Chronic debilitated due to a prior CVA with left-sided weaknesslimited mobility History of chronic postoperative pain syndrome opiate dependency Present on admission mild protein calorie malnutrition underweight BMI 14 suspect due to poor caloric intake Chronic constipation Mildly elevated troponin with no evidence of acute coronary syndrome Present on admission left hip pain orthopedic eval indicates no orthopedic intervention at this time treat medically acute on chronic exacerbation of COPD CAT scan of the chest shows multiple lung nodules present bilaterally fine needle aspiration of these nodules attempted unsuccessful due to the small size of the nodules Plan Orthopedics recommendations conservative treatment there is no urgent plan for surgical intervention in regards to the left hip Continue recommendations by cardiology service Continue recommendations by pulmonology Resume home meds as appropriate No IV access will need a PICC line Respiratory treatments as ordered repeat labs in the morning Further recommendations cardiovascular thoracic surgeon indicates not a good candidate for surgical intervention to address pulmonary nodules would recommend pulmonary eval for bronchoscopy not able to do bronchoscopically and if no definitive diagnosis is achieved recommended a PET scan. And continue with supportive care The above dictated assessment and findings were discussed with dr Clemente Guzman and the plan of care have been dictated as directed. [place] Pate nurse practitioner acting as a scribe for dr mack
[2016-12-30 17:30] LABS: Glucose,Whole Blood 183 mg/dL (75-99)
[2016-12-30] MEDS: LEVOFLOXACIN 750 MG TAB PO SCH (17:44)
[2016-12-30 20:41] LABS: Glucose,Whole Blood 207 mg/dL (75-99)
[2016-12-30 20:41] LABS: Glucose,Whole Blood >600 mg/dL (75-99)
[2016-12-30] MEDS: AMITRIPTYLINE HCL 50 MG TAB PO SCH (22:07)
[2016-12-31] MEDS: PIPERACILLIN-TAZOBACTAM 3.375 GM in DEXTROSE/WATER 1 50ML.BAG IVPB SCH ×2 (00:19→08:14)
[2016-12-31] MEDS: methylPREDNISolone SOD SUCCI 40 MG/ML 1 ML VIAL IV SCH ×3 (00:19→11:25)
[2016-12-31] MEDS: HYDROcodone/APAP 5-325MG 1 EACH TAB PO PRN ×4 (00:21→20:31)
[2016-12-31 07:40] LABS: Glucose,Whole Blood 168 mg/dL (75-99)
[2016-12-31] MEDS: IPRATROPIUM-ALBUTEROL 3 ML NEB INHALATION SCH ×4 (07:51→21:15)
--- NOTE | 2016-12-31 07:59 | CT ---
EXAMINATION TYPE: CT abdomen pelvis w con DATE OF EXAM: 12/30/2016 5:22 PM HISTORY: Pt states of abdominal pain. Possible cancer with metastatic disease to lungs per order, rec ent abnormal chest CT. CT DLP: 389.0mGycm Automated Exposure Control for Dose Reduction was Utilized. CONTRAST: CT scan of the abdomen and pelvis is performed with IV Contrast, patient injected with 100 mL of Omni paque 300. COMPARISON: Prior CT abdomen and pelvis October 11, 2016. FINDINGS: Patient has very little intra-abdominal fat making evaluation suboptimal. LUNG BASES: There are scattered irregular and rounded nodules in the bilateral lung bases redemonstra duke. LIVER/GB: Gallbladder is not identified and current study may be surgically absent PANCREAS: No significant abnormality is seen. SPLEEN: No significant abnormality is seen. ADRENALS: No significant abnormality is seen. KIDNEYS: There are 2 calculi mid to lower pole level right kidney redemonstrated measuring up to 4 mm in size felt stable. There are 1-2 smaller calculi measuring up to 3 mm in size in the left kidney s uspected on current study axial image 28 and possibly coronal image 46. There are few subcentimeter l esions too small to further characterize likely reflecting simple cysts scattered throughout both kid neys. Hyperdense left posterior portion of bladder is believed to be product of early contrast excret ion from the distal left ureter which is opacified, mass lesion felt less likely. BOWEL: There is contrast and debris-filled distended stomach. There is contrast filled distal esophag us. There is contrast-filled prominent duodenal sweep. The duodenal jejunal transition is not well id entified, narrowing at this level cannot be excluded. SMA SMV relationship is preserved. There are fe stefany and contrast-filled prominent and dilated small bowel loops particularly throughout the left abdo men. There is fecal material seen in prominent colon throughout the periphery of the abdomen and pelv is. Oral contrast does not reach colonic level. UTERUS/ADNEXA: Uterus is retroverted in shape. LYMPH NODES: No greater than 1cm abdominal or pelvic lymph nodes are appreciated. OSSEOUS STRUCTURES: Metallic hardware from prior left proximal femur surgery causes streak artifact l imiting evaluation of pelvic structures. Healed fracture deformity is present intertrochanteric level . There is disc space narrowing with spurring and sclerosis right L3-L4 level. There is facet arthrop athy in the lower lumbar spine. OTHER: There is mild calcified atherosclerotic change of aorta and branch vessels. IMPRESSION: 1. No suspicious mass or adenopathy is definitively seen to suggest primary neoplasm. 2. Overall nonspecific bowel gas pattern with dilated and prominent small and large bowel loops. Mode rate to severe diffuse colonic fecal retention is felt present particularly in proximal and mid colon . Cannot rule out low-grade bowel obstruction though felt less likely. 3. Suspicious bibasilar nodules once again noted, differential is metastatic disease versus septic em boli.
[2016-12-31] MEDS: ATORVASTATIN 80 MG TAB PO SCH (08:12)
[2016-12-31] MEDS: INSULIN LISPRO (humaLOG) 300 UNIT/3 ML VIAL SQ SCH ×4 (08:12→21:01)
[2016-12-31] MEDS: OXYBUTYNIN CHLORIDE 5 MG TAB PO SCH (08:12)
[2016-12-31] MEDS: amLODIPine 5 MG TAB PO SCH (08:13)
[2016-12-31] MEDS: METOPROLOL TARTRATE 50 MG TAB PO SCH ×2 (08:13→20:27)
[2016-12-31] MEDS: MULTIVITAMINS, THERA 1 EACH TAB PO SCH (08:13)
[2016-12-31] MEDS: LORATADINE 10 MG TAB PO SCH (08:14)
[2016-12-31] MEDS: PANTOPRAZOLE 40 MG TABLET PO SCH (08:14)
[2016-12-31] MEDS: LORazepam 1 MG TAB PO SCH ×4 (08:14→21:47)
[2016-12-31] MEDS: ASPIRIN 325 MG TAB PO SCH (08:18)
[2016-12-31 12:14] VITALS: BMI 15.1
[2016-12-31 12:15] LABS: Glucose,Whole Blood 184 mg/dL (75-99)
--- NOTE | 2016-12-31 14:50 | P.DS ---
Providers Date of admission: 12/25/16 17:49 Expected date of discharge: 12/31/16 Attending physician: Masood Mack Consults: 12/27/16 08:38 Consult Physician Routine Consulting Provider: Ashley West Consult Reason/Comments: pneumonia Do you want consulting provider notified?: Yes 12/28/16 14:44 Consult Physician Routine Consulting Provider: Blayne Giang Consult Reason/Comments: elevated trops, chest pain Do you want consulting provider notified?: Yes 12/28/16 20:07 Consult Physician Routine Consulting Provider: Serafin Mills Consult Reason/Comments: hip metal removal Do you want consulting provider notified?: Yes 12/30/16 12:15 Consult Physician Routine Consulting Provider: Gonzalo Schmidt Consult Reason/Comments: mult. lung nodules Do you want consulting provider notified?: Yes Primary care physician: [facility] Course: This is a 71-year-old thin fragile cachectic female who presented via the EMS system to be evaluated for chest pain. Patient is a poor historian. Patient gives no prior history of chest pain. Patient stated the pain radiated to her back. Patient is a thin cachectic looking older than 71-year-old female. Patient stated the chest pain occurred at rest and there were no other associated symptoms. Also reportedly was experiencing a cough. Patient does have a prior history of having a prior CVA resulting in left upper extremity weakness with very little movement. Patient medical records indicates she has a history of COPD, hypertension, DVT and paroxysmal atrial fibrillation in which the patient is currently on savaysa. 12-lead EKG on admission showed sinus with a left bundle branch block which has been seen on previous EKGs since admission patient was experiencing no chest pain cardiac enzymes 3 sets were negative Patient was experiencing left hip pain. Orthopedic consultation was requested patient was seen by Dr. Serafin redd in regards to the left hip pain. Patient had a previous repair of her left hip in [address] Melton in which an I T male for the left hip fracture was placed. Patient has not osteoporosis. Patient was seen again in March 2016 due to patient's multiple medical problems and her comorbidities plan to revise her perform a graded stone procedure was put on hold given patient's multiple comorbidities at this time there was no further orthopedic recommendations. Patient has had a prior CVA resulted in left side weakness Patient has limited mobility uses a wheelchair lives at [facility] with assisted -living facility Patient has a past medical history significant for COPD, CVA, DVT, hyperlipidemia, hypertension seizure disorder and mitral valve prolapse. Patient presented to the emergency room on December 25 with a chief complaint of developing chest pain radiated into the back. CAT scan of the chest ruled out for evidence of a pulmonary emboli. But it did show multiple lung nodules bilaterally. Interventional radiology did attempt a fine needle aspiration of these nodules was unsuccessful secondary to the small size of the nodules. They recommended a cardiothoracic surgery consultation be obtained to consider a surgical biopsy of these multiple pulmonary nodules nodules Did note cardiovascular thoracic surgeon's recommendations indicate the patient not a good candidate for surgical intervention at this time. They recommended repeating the CAT scan and/or bronchoscopic by pulmonary. If not able to do bronchoscopically and no definitive diagnosis is obtained would recommend a PET scan. For now they would continue with the supportive care. 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 Moderate to severe diffuse: Fecal retention. It' s noted in the mid:. Suspicious by basilar nodules noted no greater than 1 cm lymph nodes noted in the abdomen or the pelvic. Patient was evaluated noted to course of hospitalization did make an improvement patient was felt to be appropriate candidate for subacute rehab. Patient was able to be transferred to [facility] Impression discharge Present on admission chest pain atypical features no evidence of acute coronary syndrome 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 with chronic left foot drop Paroxysmal atrial fibrillation currently sinus on anticoagulation on savaysa Present on admission UTI with a urine culture that was negative acute on chronic exacerbation of acute COPD Present on admission chest x-ray suspect bilateral pneumonia infiltrate Mitral valve prolapse Former smoker quit in June 2015 Chronic debilitated due to a prior CVA with left-sided weakness limited mobility History of chronic postoperative pain syndrome opiate dependency Present on admission mild protein calorie malnutrition underweight BMI 14 suspect due to poor caloric intake Chronic constipation likely due to opiate dependency Mildly elevated troponin with no evidence of acute coronary syndrome Present on admission left hip pain orthopedic eval indicates no orthopedic intervention at this time treat medically acute on chronic exacerbation of COPD CAT scan of the chest shows multiple lung nodules present bilaterally fine needle aspiration of these nodules attempted unsuccessful due to the small size of the nodules Computed tomography scan abdomen and pelvis with contrast shows moderate to severe fecal retention proximal mid: With no suspicious mass or idiopathic to suggest a primary neoplastic suspicious bibasilar nodules noted The above dictated assessment and findings were discussed with dr mack Impression and the plan of care have been dictated as directed. India Pate nurse practitioner acting as a scribe for dr mack Patient Condition at Discharge: Fair Plan - Discharge Summary New Discharge Prescriptions: Atorvastatin [Lipitor] 80 mg PO DAILY #30 tab Bisacodyl [Dulcolax] 5 mg PO DAILY #30 tablet. HYDROcodone/APAP 5-325MG [[place] 5-325] 1 each PO Q6HR PRN #30 tab PRN Reason: Pain LORazepam [Ativan] 2 mg PO QID #120 tablet Levofloxacin [Levaquin] 750 mg PO Q24H #7 tab Polyethylene Glycol 3350 [Miralax] 17 gm PO DAILY #30 packet Sennosides [Senokot] 8.6 mg PO BID #60 tablet Discharge Medication List Loratadine [Claritin] 10 mg PO DAILY tab 10/14/16 [Rx] Edoxaban Tosylate [Savaysa] 60 mg PO HS 11/24/16 [History] Multivitamins, Thera [Multivitamin] 1 tab PO DAILY 11/24/16 [History] Amitriptyline HCl [Elavil] 50 mg PO HS 12/25/16 [History] Metoprolol Tartrate [Lopressor] 50 mg PO BID 12/25/16 [History] Omeprazole 20 mg PO DAILY 12/25/16 [History] Oxybutynin Chloride [Ditropan] 5 mg PO DAILY 12/25/16 [History] amLODIPine [Norvasc] 5 mg PO DAILY 12/25/16 [History] levETIRAcetam [Keppra] 750 mg PO Q12H 12/25/16 [History] Atorvastatin [Lipitor] 80 mg PO DAILY #30 tab 12/31/16 [Rx] Bisacodyl [Dulcolax] 5 mg PO DAILY #30 tablet. 12/31/16 [Rx] Edoxaban Tosylate [Savaysa] 60 mg PO DAILY tablet 12/31/16 [Rx] HYDROcodone/APAP 5-325MG [[place] 5-325] 1 each PO Q6HR PRN #30 tab 12/31/16 [Rx] Ipratropium-Albuterol Nebulize [Duoneb 0.5 mg-3 mg/3 ml Soln] 3 ml INHALATION RT -QID ampul.neb 12/31/16 [Rx] Ipratropium-Albuterol Nebulize [Duoneb 0.5 mg-3 mg/3 ml Soln] 3 ml INHALATION RT -QID PRN #0 ampul.neb 12/31/16 [Rx] LORazepam [Ativan] 2 mg PO QID #120 tablet 12/31/16 [Rx] Levofloxacin [Levaquin] 750 mg PO Q24H #7 tab 12/31/16 [Rx] Polyethylene Glycol 3350 [Miralax] 17 gm PO DAILY #30 packet 12/31/16 [Rx] Sennosides [Senokot] 8.6 mg PO BID #60 tablet 12/31/16 [Rx] Follow up Appointment(s)/Referral(s): Masood Mack MD [Primary Care Provider] - 1-2 days Ashley West DO [Doctor of Osteopathic Medicine] - 1 Week Activity/Diet/Wound Care/Special Instructions: Repeat CT of chest in 3 weeks from discharge per Science Job Titles Discharge Disposition: TRANSFER TO SNF/ECF
[2016-12-31 17:09] LABS: Glucose,Whole Blood 178 mg/dL (75-99)
[2016-12-31] MEDS ORDERED: LEVOFLOXACIN 750 MG TAB PO SCH (18:00)
[2016-12-31] MEDS: AMITRIPTYLINE HCL 50 MG TAB PO SCH (20:27)
--- NOTE | 2016-12-31 20:41 | PN ---
DATE OF SERVICE: 12/31/2016 HISTORY OF PRESENT ILLNESS: Patient is a 71-year-old female who initially presented to the ED with problems with chest pain radiating to her back with nonproductive cough. She did have a CT of the chest done which showed no pulmonary embolism but did show some questionable suspicious parenchymal nodules that were noted bilaterally and were to consider septic emboli versus metastatic neoplasm. Attempted biopsy was done by interventional radiologist and was unsuccessful. Plans at this time will be to hold off on bronchoscopy. Would recommend repeat CT scan in the future, and possibly a PET scan would also be beneficial. It appears that she also had a CT scan of the abdomen to rule out any further questionable metastatic disease, which appears negative at this time. Patient is planning on going to [facility] for rehab and it is recommended that she follow up with Pulmonary for further workup of nodules, to continue with nebulizer treatments as ordered and antibiotics for a total of 10 days. She probably would also benefit from some low dose tapering steroids also at this time. She is denying any significant productive cough at this time. No chest pain. Breathing has been okay. No nausea or vomiting. She has confusion off and on. PHYSICAL EXAMINATION: Vital signs show temperature 97.8, heart rate 90, respiratory rate 16. Blood pressure is 96/52. Oxygen saturation on room air is 93%. Labs for today showed glucose of 184. Blood cultures were negative. Urine cultures were negative. GENERAL: She is a 71-year-old female who appears in no acute respiratory distress at this time. HEENT: Pupils are reactive, mucous membranes slightly dry. NECK: Supple. Trachea is midline. Lung sounds are diminished throughout. CARDIOVASCULAR: S1, S2 heard with systolic murmur. ABDOMEN: Soft, nontender. Bowel sounds present. EXTREMITIES: No edema. Dorsalis pedis pulses palpable. NEUROLOGIC: She is awake, alert, has some confusion. She is cachectic in appearance. IMPRESSION: 1. Abnormal CT scan of lungs where she will require further workup, either bronchoscopy or PET scan, and repeat CT on an outpatient basis. 2. Atypical type chest pain. 3. Pneumonia where she has been on antibiotic therapy. 4. Acute on chronic exacerbation of chronic obstructive pulmonary disease. 5. Urinary tract infection. 6. Paroxysmal atrial fibrillation. 7. Mitral valve prolapse. 8. History of cerebrovascular accident with left-sided weakness. PLAN: Patient needs to be seen by Pulmonary on an outpatient basis. Agree with rehab. Continue with her antibiotics for 10 days total. Continue with her nebulizer treatments as ordered. She would benefit from low dose tapering steroids. Continue to increase her activity as tolerated. Will continue to follow patient with you until discharge.
[2016-12-31 21:10] LABS: Glucose,Whole Blood 198 mg/dL (75-99)
[2017-01-01 01:56] VITALS: RESP 20
[2017-01-01 07:42] LABS: Glucose,Whole Blood 106 mg/dL (75-99)
[2017-01-01 07:50] VITALS: BP 134/70; PULSE 73; TEMP 98
[2017-01-01] MEDS: HYDROcodone/APAP 5-325MG 1 EACH TAB PO PRN (08:16)
[2017-01-01] MEDS: METOPROLOL TARTRATE 50 MG TAB PO SCH (08:16)
[2017-01-01] MEDS: OXYBUTYNIN CHLORIDE 5 MG TAB PO SCH (08:16)
[2017-01-01] MEDS: MULTIVITAMINS, THERA 1 EACH TAB PO SCH (08:16)
[2017-01-01] MEDS: LORazepam 1 MG TAB PO SCH (08:16)
[2017-01-01] MEDS: LORATADINE 10 MG TAB PO SCH (08:16)
[2017-01-01] MEDS: amLODIPine 5 MG TAB PO SCH (08:17)
[2017-01-01] MEDS: PANTOPRAZOLE 40 MG TABLET PO SCH (08:17)
[2017-01-01] MEDS: ATORVASTATIN 80 MG TAB PO SCH (08:17)
[2017-01-01] MEDS: ASPIRIN 325 MG TAB PO SCH (08:17)
[2017-01-01] MEDS: INSULIN LISPRO (humaLOG) 300 UNIT/3 ML VIAL SQ SCH (08:23)
[2017-01-01] MEDS: IPRATROPIUM-ALBUTEROL 3 ML NEB INHALATION SCH (08:39)
[2017-01-01] MEDS ORDERED: EDOXABAN TOSYLATE 60 MG TABLET PO SCH (09:00)
[2017-01-03 01:57] LABS: Cladosporium herbarium IgG 15.3 mcg/mL (< 14.7); Saccaharomospora viridis Not detected (Not detected); Saccaharopoly. rectivirgula Not detected (Not detected)
== END 2017-01-01 11:26 | DRG 190 ==
LOC: EC 16:22 → 6SEL 17:49 → 4MS4W 12-27 10:29
PROVIDERS: ADMIT Family Medicine; ATTEND Family Medicine
PROC: 02HV33Z Insertion of Infusion Device into Superior Vena Cava, Percutaneous Approach (ICD-10-PCS; principal; 2016-12-26 15:00)
PROC: B548ZZA Ultrasonography of Superior Vena Cava, Guidance (ICD-10-PCS; 2016-12-26 15:00)
DX: J44.0 Chronic obstructive pulmonary disease with (acute) lower respiratory infection (principal); J18.9 Pneumonia, unspecified organism; R64 Cachexia; I69.354 Hemiplegia and hemiparesis following cerebral infarction affecting left non-dominant side; N39.0 Urinary tract infection, site not specified; F11.20 Opioid dependence, uncomplicated; I48.0 Paroxysmal atrial fibrillation; G40.909 Epilepsy, unspecified, not intractable, without status epilepticus; Z68.1 Body mass index [BMI] 19.9 or less, adult; E44.1 Mild protein-calorie malnutrition; J44.1 Chronic obstructive pulmonary disease with (acute) exacerbation; I34.1 Nonrheumatic mitral (valve) prolapse; R91.8 Other nonspecific abnormal finding of lung field; M51.36 Other intervertebral disc degeneration, lumbar region; K44.9 Diaphragmatic hernia without obstruction or gangrene; F32.9 Major depressive disorder, single episode, unspecified; I10 Essential (primary) hypertension; E78.5 Hyperlipidemia, unspecified; G89.28 Other chronic postprocedural pain; K59.09 Other constipation; F41.9 Anxiety disorder, unspecified; I44.7 Left bundle-branch block, unspecified; K21.9 Gastro-esophageal reflux disease without esophagitis; M19.91 Primary osteoarthritis, unspecified site; M81.0 Age-related osteoporosis without current pathological fracture; F40.240 Claustrophobia; I25.2 Old myocardial infarction; Z53.8 Procedure and treatment not carried out for other reasons; Z87.891 Personal history of nicotine dependence; Z86.718 Personal history of other venous thrombosis and embolism; Z87.11 Personal history of peptic ulcer disease; Z87.19 Personal history of other diseases of the digestive system; Z87.442 Personal history of urinary calculi; Z96.642 Presence of left artificial hip joint; Z97.0 Presence of artificial eye; Z79.899 Other long term (current) drug therapy
CPT/HCPCS: 36415; 36569; 71010; 71020; 71275; 74177; 76380; 76937; 77001; 80048; 80053; 80061; 81001; 82550; 82553; 82785; 83036; 83690; 83735; 83880; 84484; 85025; 85049; 85610; 85730; 86001; 86038; 86039; 86255; 86431; 86606; 86609; 87040; 87086; 93005; 93306; 94640; 94760; 96361; 96365; 96368; 96375; 96376; 99291

== ENCOUNTER 2017-01-25 20:37 | Inpatient (IN) | payer MEDICARE, BC ==
[2017-01-25] MEDS ORDERED: SODIUM CHLORIDE 0.9% 1,000 ML IV SCH (21:45)
[2017-01-25 22:52] LABS: Anisocytosis Slight; Eosinophils % (A) 1 %; Luc # (Auto) 0.26; Luc % (Auto) 3; Macrocytosis Moderate
[2017-01-25 22:56] LABS: Basophils % (A) 1 %; CH 31.7; CHCM 31.3; Eosinophils # (A) 0.1 k/uL (0-0.7); HCT 40.2 % (34.0-46.0); HDW 2.92; HGB 12.6 gm/dL (11.4-16.0); Hypochromasia Slight; Lymphocytes # (A) 1.3 k/uL (1.0-4.8); Lymphocytes % (A) 16 %; MCHC 31.5 g/dL (31.0-37.0); MCV 101.8 fL (80.0-100.0); Mean Platelet Volume 7.4; Monocytes # (A) 0.6 k/uL (0-1.0); Monocytes % (A) 8 %; Neutrophils # (A) 5.9 k/uL (1.3-7.7); Neutrophils % (A) 72 %; RBC 3.95 m/uL (3.80-5.40); RDW 16.5 % (11.5-15.5); WBC 8.1 k/uL (3.8-10.6); WBC (Perox) 7.84
--- NOTE | 2017-01-25 23:20 | ED ---
General Adult HPI - General Chief complaint: Extremity Injury, Lower Stated complaint: LEG PAIN Time Seen by Provider: 01/25/17 20:49 Source: patient, EMS, RN notes reviewed, old records reviewed Mode of arrival: EMS Limitations: physical limitation - History of Present Illness Initial comments: Chief complaint and history of present illness 71-year-old female lives in a longterm. While there she been receiving [place] for chronic pain including a previous healed fracture to her left proximal tibia. She has a brace on. Reportedly she was not getting pain controlled with the [place] as provided. She was sent emergency room. Patient denies any falls. She has had a stroke that affects the left side and is been no time when the patient was out of bed on her own. - Related Data Home Medications Medication Instructions Recorded Confirmed Edoxaban Tosylate [Savaysa] 60 mg PO HS 11/24/16 12/25/16 Multivitamins, Thera [Multivitamin 1 tab PO DAILY 11/24/16 12/25/16 (formulary)] Amitriptyline HCl [Elavil] 50 mg PO HS 12/25/16 12/25/16 Metoprolol Tartrate [Lopressor] 50 mg PO BID 12/25/16 12/25/16 Omeprazole 20 mg PO DAILY 12/25/16 12/25/16 Oxybutynin Chloride [Ditropan] 5 mg PO DAILY 12/25/16 12/25/16 amLODIPine [Norvasc] 5 mg PO DAILY 12/25/16 12/25/16 levETIRAcetam [Keppra] 750 mg PO Q12H 12/25/16 12/25/16 Previous Rx's Medication Instructions Recorded Loratadine [Claritin] 10 mg PO DAILY tab 10/14/16 Atorvastatin [Lipitor] 80 mg PO DAILY #30 tab 12/31/16 Bisacodyl [Dulcolax] 5 mg PO DAILY #30 tablet. 12/31/16 Edoxaban Tosylate [Savaysa] 60 mg PO DAILY tablet 12/31/16 HYDROcodone/APAP 5-325MG [[place] 1 each PO Q6HR PRN #30 tab 12/31/16 5-325] Ipratropium-Albuterol Nebulize 3 ml INHALATION RT-QID ampul.neb 12/31/16 [Duoneb 0.5 mg-3 mg/3 ml Soln] Ipratropium-Albuterol Nebulize 3 ml INHALATION RT-QID PRN #0 12/31/16 [Duoneb 0.5 mg-3 mg/3 ml Soln] ampul.neb LORazepam [Ativan] 2 mg PO QID #120 tablet 12/31/16 Levofloxacin [Levaquin] 750 mg PO Q24H #7 tab 12/31/16 Polyethylene Glycol 3350 [Miralax] 17 gm PO DAILY #30 packet 12/31/16 Sennosides [Senokot] 8.6 mg PO BID #60 tablet 12/31/16 Allergies Allergy/AdvReac Type Severity Reaction Status Date / Time No Known Allergies Allergy Verified 01/25/17 20:48 Review of Systems ROS Statement: Those systems with pertinent positive or pertinent negative responses have been documented in the HPI. Review of systems. Patient denies any headache or visual acuity changes no chest pain he is chronically short of breath with COPD. No abdominal pain. Patient's chronic muscular skeletal pains. All systems otherwise reviewed. Past medical problems multiple problems including COPD, CVA affecting the left side. Patient had DVT, GERD, hyperlipidemia, hypertension, previous SC, MVP, osteoarthritis, previous pneumonia treated several weeks ago. She's also history of seizure disorder syncopal episodes DVT left lower leg. She is on some bicep for that as well as A. fib. Last EKG showed her to be in sinus rhythm. Today's heart rate to 89. Patient has chronic pain. ROS Other: All systems not noted in ROS Statement are negative. Past Medical History Past Medical History: COPD, CVA/TIA, Deep Vein Thrombosis (DVT), GERD/Reflux, Hyperlipidemia, Hypertension, Myocardial Infarction (SC), Mitral Valve Prolapse (MVP), Osteoarthritis (OA), Pneumonia, Seizure Disorder, Syncope Additional Past Medical History / Comment(s): DVT L lower leg, CVA/TIA with L arm and L leg weakness, constipation, MVP, nephrolithiasis x 2-passed 1 stone, peptic ulcer disease, hiatal hernia, esophageal ulcer, djd,ddd lumbar area, chronic back pain, past L tibial fx and L hip fx, cellulitis L lower leg, UTIs, syncopy. Last Myocardial Infarction Date:: 2015 History of Any Multi-Drug Resistant Organisms: None Reported Past Surgical History: Orthopedic Surgery, Tonsillectomy Additional Past Surgical History / Comment(s): 08/2014 lap exam, LEFT HIP SX WITH NAILING, left eye implant- POST FACIAL INJURY, BRAIN SX R/T ANEURYSM- HAD DRAIN IN NOW OUT, EGD and colonoscopy. Past Anesthesia/Blood Transfusion Reactions: No Reported Reaction Additional Past Anesthesia/Blood Transfusion Reaction / Comment(s): Claustrophobia Past Psychological History: Anxiety, Depression Additional Psychological History / Comment(s): Pt resides at [facility]. Pt states she performs her own ADLs. She gets around in a wheelchair and transfers herself into the W/C. HAS BEEN TAKING ATIVAN FOR 35 YRS. Smoking Status: Former smoker Past Alcohol Use History: None Reported Additional Past Alcohol Use History / Comment(s): Pt started smoking in about 1998 and STOPPED SMOKING JUN 2015. She was a light smoker. Past Drug Use History: None Reported - Past Family History Mother Family Medical History: Hypertension Additional Family Medical History / Comment(s): heart problems. Mother at age 87yrs. Father History Unknown: Yes Additional Family Medical History / Comment(s): pt's dad left when she was a baby -no hx known. General Exam - General Exam Comments Initial Comments: General: The patient is awake and alert, cachectic, weighs 88 pounds. His a DO NOT RESUSCITATE. States she has pain to her leg and back which is chronic. Vital signs show temperature 98.7 pulse 89 respiratory rate 16 pulse ox 90% on room air blood pressure 149/70. Eye: Pupils are equal, round and reactive to light, extra-ocular movements are intact ; there is normal conjunctiva bilaterally. No signs of icterus. Ears, nose, mouth and throat: Mildly dry mucous membranes. Patient will be hydrated. Neck: The neck is supple, chronic musculoskeletal discomfort. History of osteoarthritis. Cardiovascular: History of A. fib but and sinus rhythm on last EKG. Rate today 89. Respiratory: Lungs are clear to auscultation, respirations are non-labored, breath sounds are equal. No wheezes, stridor, rales, or rhonchi. Gastrointestinal: Soft, non-distended, non-tender abdomen without masses or organomegaly noted. There is no rebound or guarding present. No CVA tenderness. Bowel sounds are unremarkable. Back: Chronic back pain Musculoskeletal: Stroke totally affect the left side of her body. Left arm left leg contracted. Nonlaboratory. She has a brace on her left knee keeping that approximately 45 . Chronic leg pain. Previous tibial fracture healing from reports of x-rays taken recently. Neurological: CN II-XII intact, stroke left her flaccid on her left side. Cooperative, Limitations: physical limitation Course Vital Signs 01/25/17 01/25/17 01/25/17 20:44 22:47 23:00 Temperature 98.7 F Pulse Rate 89 Respiratory 16 16 16 Rate Blood Pressure 149/70 O2 Sat by Pulse 92 L Oximetry Medical Decision Making - Medical Decision Making The patient was sent to the hospital for pain management. The patient received 0.[address] Red alfonso on-call for Dr. Masood Cornejo. He wants the patient admitted to Dr. Masood Cornejo. - Lab Data Result diagrams: 01/25/17 22:25 01/25/17 22:25 Lab Results 01/25/17 01/25/17 Range/Units 22:25 22:25 WBC 8.1 (3.8-10.6) k/uL RBC 3.95 (3.80-5.40) m/uL Hgb 12.6 (11.4-16.0) gm/dL Hct 40.2 (34.0-46.0) % MCV 101.8 H (80.0-100.0) fL MCH 32.0 (25.0-35.0) pg MCHC 31.5 (31.0-37.0) g/dL RDW 16.5 H (11.5-15.5) % Plt Count 564 H (150-450) k/uL Neutrophils % 72 % Lymphocytes % 16 % Monocytes % 8 % Eosinophils % 1 % Basophils % 1 % Neutrophils # 5.9 (1.3-7.7) k/uL Lymphocytes # 1.3 (1.0-4.8) k/uL Monocytes # 0.6 (0-1.0) k/uL Eosinophils # 0.1 (0-0.7) k/uL Basophils # 0.0 (0-0.2) k/uL Hypochromasia Slight Anisocytosis Slight Macrocytosis Moderate Sodium 141 (137-145) mmol/L Potassium 5.1 (3.5-5.1) mmol/L Chloride 107 (98-107) mmol/L Carbon Dioxide 24 (22-30) mmol/L Anion Gap 10 mmol/L BUN 23 H (7-17) mg/dL Creatinine 0.60 (0.52-1.04) mg/dL Est GFR (MDRD) Af Amer >60 (>60 ml/min/1.73 sqM) Est GFR (MDRD) Non-Af >60 (>60 ml/min/1.73 sqM) Glucose 103 H (74-99) mg/dL Calcium 9.3 (8.4-10.2) mg/dL Total Bilirubin 0.7 (0.2-1.3) mg/dL AST 47 H (14-36) U/L ALT 31 (9-52) U/L Alkaline Phosphatase 160 H (38-126) U/L Total Protein 6.9 (6.3-8.2) g/dL Albumin 3.4 L (3.5-5.0) g/dL Disposition Clinical Impression: Intractable neuropathic pain of left lower extremity Disposition: ADMITTED IP TO THIS HOSP
[2017-01-25 23:23] LABS: Anion Gap 10 mmol/L; Calcium 9.3 mg/dL (8.4-10.2); Carbon Dioxide 24 mmol/L (22-30); Chloride 107 mmol/L (98-107); Glucose 103 mg/dL (74-99); Non-African American GFR(MDRD) >60 (>60 ml/min/1.73 sqM); Sodium 141 mmol/L (137-145); Total Bilirubin 0.7 mg/dL (0.2-1.3); Total Protein 6.9 g/dL (6.3-8.2)
[2017-01-25 23:25] LABS: Potassium 5.1 mmol/L (3.5-5.1)
[2017-01-25 23:26] LABS: ALT 31 U/L (9-52); AST 47 U/L (14-36); Alkaline Phosphatase 160 U/L (38-126); Blood Urea Nitrogen 23 mg/dL (7-17)
[2017-01-26] MEDS ORDERED: HYDROmorphone 1 MG/ML 1 ML SYRINGE IM STA (00:16)
[2017-01-26] MEDS ORDERED: NALOXONE 0.4 MG/ML 1 ML VIAL IV PRN (00:32)
[2017-01-26] MEDS ORDERED: IPRATROPIUM-ALBUTEROL 3 ML NEB INHALATION PRN (00:36)
[2017-01-26 01:42] VITALS: BMI 15.1
[2017-01-26] MEDS: SODIUM CHLORIDE 0.9% 1,000 ML IV SCH ×2 (03:26→16:46)
[2017-01-26] MEDS: HYDROmorphone 1 MG/ML 1 ML SYRINGE IV PRN ×2 (06:33→12:10)
[2017-01-26] MEDS: POLYETHYLENE GLYCOL 3350 17 GM POWD.PACK PO SCH (08:35)
[2017-01-26] MEDS: OXYBUTYNIN CHLORIDE 5 MG TAB PO SCH (08:36)
[2017-01-26] MEDS: PANTOPRAZOLE 40 MG TABLET PO SCH ×2 (08:36→16:47)
[2017-01-26] MEDS: ATORVASTATIN 80 MG TAB PO SCH (08:36)
[2017-01-26] MEDS: amLODIPine 5 MG TAB PO SCH (08:36)
[2017-01-26] MEDS: LORATADINE 10 MG TAB PO SCH (08:37)
[2017-01-26] MEDS: BISACODYL 5 MG TABLET.DR PO SCH (08:37)
[2017-01-26] MEDS: MULTIVITAMINS, THERA 1 EACH TAB PO SCH (08:37)
[2017-01-26] MEDS: EDOXABAN TOSYLATE 60 MG TABLET PO SCH (08:37)
[2017-01-26] MEDS: METOPROLOL TARTRATE 50 MG TAB PO SCH ×2 (08:37→23:02)
[2017-01-26] MEDS: HYDROcodone/APAP 7.5-325MG 1 EACH TAB PO PRN ×3 (09:34→23:01)
--- NOTE | 2017-01-26 11:43 | P.HPIM ---
History of Present Illness H&P Date: 01/26/17 Chief Complaint: Left leg pain This is a 71-year-old female who was recently admitted on 12/25/2016 and discharged on 12/31/2016. The patient was admitted for pneumonia and left leg pain. She presented today with similar complaints. She states that she was at rehab and was having intractable left leg pain. She states she was given [place] which didn't help. The patient is overall a very poor historian. The patient has a history of a prior stroke with left-sided weakness. Review of Systems All systems: negative Past Medical History Past Medical History: COPD, CVA/TIA, Deep Vein Thrombosis (DVT), GERD/Reflux, Hyperlipidemia, Hypertension, Myocardial Infarction (VT), Mitral Valve Prolapse (MVP), Osteoarthritis (OA), Pneumonia, Seizure Disorder, Syncope Additional Past Medical History / Comment(s): DVT L lower leg, CVA/TIA with L arm and L leg weakness, constipation, MVP, nephrolithiasis x 2-passed 1 stone, peptic ulcer disease, hiatal hernia, esophageal ulcer, djd,ddd lumbar area, chronic back pain, past L tibial fx and L hip fx, cellulitis L lower leg, UTIs, syncopy. Last Myocardial Infarction Date:: 2015 History of Any Multi-Drug Resistant Organisms: None Reported Past Surgical History: Orthopedic Surgery, Tonsillectomy Additional Past Surgical History / Comment(s): 08/2014 lap exam, LEFT HIP SX WITH NAILING, left eye implant- POST FACIAL INJURY, BRAIN SX R/T ANEURYSM- HAD DRAIN IN NOW OUT, EGD and colonoscopy. Past Anesthesia/Blood Transfusion Reactions: No Reported Reaction Additional Past Anesthesia/Blood Transfusion Reaction / Comment(s): Claustrophobia Past Psychological History: Anxiety, Depression Additional Psychological History / Comment(s): Pt resides at [facility]. Pt states she performs her own ADLs. She gets around in a wheelchair and transfers herself into the W/C. HAS BEEN TAKING ATIVAN FOR 35 YRS. Smoking Status: Former smoker Past Alcohol Use History: None Reported Additional Past Alcohol Use History / Comment(s): Pt started smoking in about 1998 and STOPPED SMOKING JUN 2015. She was a light smoker. Past Drug Use History: None Reported - Past Family History Mother Family Medical History: Hypertension Additional Family Medical History / Comment(s): heart problems. Mother at age 87yrs. Father History Unknown: Yes Additional Family Medical History / Comment(s): pt's dad left when she was a baby -no hx known. Medications and Allergies Home Medications Medication Instructions Recorded Confirmed Type Multivitamins, Thera [Multivitamin 1 tab PO DAILY 11/24/16 01/26/17 History (formulary)] Amitriptyline HCl [Elavil] 50 mg PO HS 12/25/16 01/26/17 History Metoprolol Tartrate [Lopressor] 50 mg PO BID 12/25/16 01/26/17 History Omeprazole 20 mg PO DAILY 12/25/16 01/26/17 History Oxybutynin Chloride [Ditropan] 5 mg PO DAILY 12/25/16 01/26/17 History amLODIPine [Norvasc] 5 mg PO DAILY 12/25/16 01/26/17 History levETIRAcetam [Keppra] 750 mg PO Q12H 12/25/16 01/26/17 History Enoxaparin [Lovenox] 1 dose SQ DAILY 01/26/17 01/26/17 History HYDROcodone/APAP 5-325MG [[place] 1 tab PO Q6HR PRN 01/26/17 01/26/17 History 5-325] traMADol HCL [Ultram] 50 mg PO Q6H PRN 01/26/17 01/26/17 History Allergies Allergy/AdvReac Type Severity Reaction Status Date / Time No Known Allergies Allergy Verified 01/26/17 08:06 Physical Exam Osteopathic Statement: *. No significant issues noted on an osteopathic structural exam other than those noted in the History and Physical/Consult. Vitals: Vital Signs Temp Pulse Pulse Resp BP BP Pulse Ox 01/26/17 07:42 98.6 F 80 16 144/61 97 01/26/17 02:51 98.6 F 85 18 150/68 94 L 01/26/17 00:59 98.4 F 79 20 102/55 95 Intake and Output 01/25/17 01/26/17 01/26/17 22:59 06:59 14:59 Intake Total 136 Output Total 1 1 Balance -1 135 Intake: Oral 136 Output: Stool 1 1 Other: Voiding Method Diaper Incontinent # Voids 1 Weight 40 kg Gen. patient is alert and oriented 3, no acute distress, cachexia, poor historian Cardiovascular: Regular rate and rhythm, S1/S2 Lungs: Diminished breath sounds bilaterally otherwise clear Abdomen: Soft nontender nondistended positive bowel sounds Extremities: No edema Results CBC & Chem 7: 01/25/17 22:25 01/25/17 22:25 Thrombosis Risk Factor Assmnt - DVT/VTE Prophylaxis DVT/VTE Prophylaxis: Pharmacologic Prophylaxis ordered - Choose All That Apply Each Factor Represents 1 point: Medical pt on bed rest Each Risk Factor Represents 2 Points: Age 61-74 years, Patient confined to bed Thrombosis Risk Factor Assessment Total Risk Factor Score: 5 Thrombosis Risk Factor Assessment Level: High Risk Assessment and Plan Plan: Intractable left lower extremity pain Recent pneumonia COPD, not acutely exacerbated Paroxysmal atrial fibrillation Mitral valve prolapse History of CVA with left-sided weakness Protein calorie malnutrition Anxiety and depression History of seizures Chronic back pain Recent UTI History of DVT Dyslipidemia Urinary retention O2 to maintain saturation greater than equal to 88% Pain control Consult orthopedics Will repeat CT of the chest Continue patient's home medications GI and DVT prophylaxis Incentive spirometry and pulmonary hygiene Consult physical and occupational therapy Consult dietitian Gentle fluid hydration Monitor labs Patient seen and examined covering for Dr. Masood Cornejo.
--- NOTE | 2017-01-26 15:05 | CT ---
EXAMINATION TYPE: CT chest wo con DATE OF EXAM: 01/26/2017 2:34 PM COMPARISON: NONE HISTORY: Previous nodules CT DLP: 420 mGycm, Automated exposure control for dose reduction was used. CONTRAST: Performed injected with 0 mL of Omnipaque 300. TECHNIQUE: Axial images were obtained at 5 mm thick sections. Reconstructed images are reviewed on [employer] computer in the coronal plane. FINDINGS: Portion of the thyroid visualized is normal. There is a 0.6 cm nodules in the posterior lateral left lung base. These appear smaller than the comp arison. There is a 0.7 cm nodule in the posterior lateral left lung base. Series 3 image 46. There ar e couple of nodules within the right middle lobe midlung field which appears stable from comparison. There is an anterior right middle lobe nodule measuring 0.7 cm, series 3 image 37, which is larger th an the comparison of 0.4 cm in transverse dimension. The medial right middle lobe nodule series 3 ronnie ge 39 currently measures 1.2 cm which is diminished in size from 1.5 cm. There are multiple additional smaller findings present. Consolidation in the posterior left lung base is improved. Underlying nodularity is present. Lung findings are suspicious for neoplasm such as metastatic disease. Other etiologies including infe ctious etiologies remain within the differential. Some of these may have diminished in size. At least one nodule is enlarged over the interval. Majority of the nodules appear somewhat diminished in size . Correlate for any treatment. Small shotty lymphadenopathy is within the superior mediastinum in pretracheal space. The ascending aorta diameter at the level of the main pulmonary artery is 2.8 cm. The main pulmonary artery diame ter at the bifurcation is 1.[address] sections are obtained through the upper abdomen. Abdomen is essentially unremarkable. IMPRESSIONS: 1. Extensive bilateral multiple nodules with slight improvement over the interval. At least one nodul e has enlarged in size over the interval the right middle lobe. Continued monitoring and follow-up is recommended.
[2017-01-26] MEDS: traMADol 50 MG TAB PO PRN (16:48)
--- NOTE | 2017-01-26 17:21 | XR ---
EXAMINATION TYPE: XR femur LT, XR tibia fibula LT DATE OF EXAM: 01/26/2017 4:26 PM CLINICAL HISTORY: Generalized pain. TECHNIQUE: Two views of the left leg and femur are obtained. COMPARISON: Pelvic and left knee x-rays December 09, 2016. FINDINGS: Exam is suboptimal due to overlying brace. There is intramedullary calvin with femoral neck pr oximal fixating screw and distal transverse fixating screw through healed fracture deformity left pro ximal femur. Finding is unchanged from prior exam and appearance. Some malunion is present but alignm ent is stable. Periosteal reaction along lateral aspect is stable. [place] osseous structures are carmencita neralized. There is new minimally displaced comminuted fracture through distal fibular metaphysis since December 09. Images of left leg show demineralization without additional distal fracture or dislocation. There are healing or healed fractures of the proximal fibular diaphysis and proximal tibial metaphysis. IMPRESSION: Suboptimal study but there is new acute comminuted minimally displaced fracture through d istal femoral metaphysis. A Yellow message has been communicated to Masood Cornejo MD via the [employer] Critical Result system on 01/26/2017 5:18 PM, Message ID [id number].
[2017-01-27] MEDS: HYDROmorphone 1 MG/ML 1 ML SYRINGE IV PRN (00:02)
[2017-01-27] MEDS: PANTOPRAZOLE 40 MG TABLET PO SCH ×2 (09:00→17:47)
[2017-01-27] MEDS: amLODIPine 5 MG TAB PO SCH (09:00)
[2017-01-27] MEDS: LORATADINE 10 MG TAB PO SCH (09:00)
[2017-01-27] MEDS: ATORVASTATIN 80 MG TAB PO SCH (09:00)
[2017-01-27] MEDS: METOPROLOL TARTRATE 50 MG TAB PO SCH (09:01)
[2017-01-27] MEDS: OXYBUTYNIN CHLORIDE 5 MG TAB PO SCH (09:01)
[2017-01-27] MEDS: EDOXABAN TOSYLATE 60 MG TABLET PO SCH (09:01)
[2017-01-27] MEDS: MULTIVITAMINS, THERA 1 EACH TAB PO SCH (09:01)
[2017-01-27] MEDS: POLYETHYLENE GLYCOL 3350 17 GM POWD.PACK PO SCH (09:02)
[2017-01-27] MEDS: BISACODYL 5 MG TABLET.DR PO SCH (09:02)
--- NOTE | 2017-01-27 11:20 | P.PN ---
Subjective 71-year-old female being seen on rounds. Daughter at bedside. This is a very frail thin cachectic female who presented via the EMS system from [facility] [place] in [place] . Patient was transferred from the facility for poor pain control. Patient was just discharged on December 25 at that admission the patient was treated for atypical chest pain no evidence of acute coronary syndrome acute. Exacerbation of COPD chronically debilitated due to a prior CVA with left side weakness . With left hip pain Patient was transferred to the subacute rehab for rehab potential patient presented with similar complaints this admission left lower leg pain The daughter is at the bedside who indicates that the patient was at the rehab center was continuing to experience pain involving the left leg x-rays were obtained it showed a new acute comminuted minimally displaced fracture to the distal femoral metaphysis orthopedic consultation has been requested they did see the patient on the 26 of January with recommendations for medical management no orthopedic intervention currently patient has on a left leg immobilizer in place patient continues to report having pain in the left leg . Objective - Vital Signs Vital signs: Vital Signs Temp 97.4 F L 01/27/17 08:00 Pulse 87 01/27/17 08:00 Resp 16 01/27/17 08:00 BP 141/65 01/27/17 08:00 Pulse Ox 93 L 01/27/17 08:00 Intake & Output 01/26/17 01/27/17 01/27/17 18:59 06:59 18:59 Intake Total 136 Output Total 1 4 Balance 135 -4 Weight 40 kg Intake: Oral 136 Output: Stool 1 4 Other: Voiding Method Diaper Diaper Diaper Incontinent Incontinent Incontinent # Voids 1 - Exam Physical exam 71-year-old thin underweight cachectic female resting in bed daughter at bedside oriented to person and place poor historian appears in no acute distress Lungs posterior diminished at the bases poor air entry on room air sats are 93% Heart S1-S2 audible regular denying chest pain Abdomen flat nontender nondistended bowel tones present no reports of nausea vomiting incontinent a urine no stool Extremities muscle wasting to the upper and lower extremities the left lower extremity brace in place palpable pedal pulses no edema warm to touch - Labs CBC & Chem 7: 01/25/17 22:25 01/25/17 22:25 Assessment and Plan Plan: Impression Present on admission intractable left hip pain suspect due to a new acute left displaced fracture through the distal femur CAT scan of the chest extensive bilateral multiple nodules slight improvement from prior CAT scan one nodule enlarged in size over the interval right middle lobe Chronic constipation likely due to opiate dependency Present on admission left hip pain orthopedic eval indicates no orthopedic intervention at this time suspect due to a new acute left femoral distress fracture Chronic pain narcotic dependency Chronic physical debility due to prior CVA with left-sided deficit with chronic left foot drop Paroxysmal atrial fibrillation currently sinus on anticoagulation on [place] Chronic COPD with no evidence of an exacerbation Former smoker greater than a 40 year history quit June 2015 Present on admission mild protein calorie malnutrition underweight BMI 14 suspect due to poor caloric intake muscle wasting Plan Discuss with orthopedic service no orthopedic intervention warranted at this time treat medically optimize pain management We'll start fentanyl at 12mcg patch titrate up for better pain control [place] increased to 7.0 325 for breakthrough pain Plan to return to the ECF facility in the next 24 hours Resume home meds as appropriate Medical management Nutritional supplements as ordered The above dictated assessment and findings were discussed with dr dorian reyna covering for dr mack Impression and the plan of care have been dictated as directed. India Pate nurse practitioner acting as a scribe for S/Natalie alfonso covering for dr mack
[2017-01-27] MEDS ORDERED: POLYETHYLENE GLYCOL 3350 17 GM POWD.PACK PO SCH (11:30)
[2017-01-27] MEDS: HYDROcodone/APAP 7.5-325MG 1 EACH TAB PO PRN ×2 (11:31→19:03)
[2017-01-27] MEDS: traMADol 50 MG TAB PO PRN ×2 (12:29→17:47)
[2017-01-27] MEDS ORDERED: LORAZEPAM 2 MG PO SCH (13:00)
--- NOTE | 2017-01-27 13:09 | P.CNOR ---
History of Present Illness - HPI Consult date: 01/26/17 History of present illness: This is a pleasant 71-year-old female whom we are consulted regarding left lower external any pain. Patient is known to Dr. Serafin Mills. She has history of IT nail for left hip fracture with Dr. Arceo in 2014. She had failure of her left hip hardware and possible Girdlestone procedure was considered. However the patient sustained a tibia fracture along with multiple other medical problems. She's had several admissions and ER visits. She has history of DVT in the past. She also has history of CVA with some left-sided weakness. The patient was seen and evaluated at bedside. She complains of pain in her left lower extremity. She describes the pain as mostly being in the posterior aspect of her upper thigh. She also complains of chronic left hip pain. At the time evaluation she denies any recent injury or trauma. She has been residing at a rehab facility where her pain was uncontrolled and subsequently she was transferred to [facility]. She is admitted to Dr. Cornejo's service.Overall the patient is a poor historian is difficult to obtain a detailed history. Review of Systems See HPI Past Medical History Past Medical History: COPD, CVA/TIA, Deep Vein Thrombosis (DVT), GERD/Reflux, Hyperlipidemia, Hypertension, Myocardial Infarction (WA), Mitral Valve Prolapse (MVP), Osteoarthritis (OA), Pneumonia, Seizure Disorder, Syncope Additional Past Medical History / Comment(s): DVT L lower leg, CVA/TIA with L arm and L leg weakness, constipation, MVP, nephrolithiasis x 2-passed 1 stone, peptic ulcer disease, hiatal hernia, esophageal ulcer, djd,ddd lumbar area, chronic back pain, past L tibial fx and L hip fx, cellulitis L lower leg, UTIs, syncopy. Last Myocardial Infarction Date:: 2015 History of Any Multi-Drug Resistant Organisms: None Reported Past Surgical History: Orthopedic Surgery, Tonsillectomy Additional Past Surgical History / Comment(s): 08/2014 lap exam, LEFT HIP SX WITH NAILING, left eye implant- POST FACIAL INJURY, BRAIN SX R/T ANEURYSM- HAD DRAIN IN NOW OUT, EGD and colonoscopy. Past Anesthesia/Blood Transfusion Reactions: No Reported Reaction Additional Past Anesthesia/Blood Transfusion Reaction / Comm: Claustrophobia Past Psychological History: Anxiety, Depression Additional Psychological History / Comment(s): Pt resides at [facility]. Pt states she performs her own ADLs. She gets around in a wheelchair and transfers herself into the W/C. HAS BEEN TAKING ATIVAN FOR 35 YRS. Smoking Status: Former smoker Past Alcohol Use History: None Reported Additional Past Alcohol Use History / Comment(s): Pt started smoking in about 1998 and STOPPED SMOKING JUN 2015. She was a light smoker. Past Drug Use History: None Reported - Past Family History Mother Family Medical History: Hypertension Additional Family Medical History / Comment(s): heart problems. Mother at age 87yrs. Father History Unknown: Yes Additional Family Medical History / Comment(s): pt's dad left when she was a baby -no hx known. Medications and Allergies Home Medications Medication Instructions Recorded Confirmed Type Multivitamins, Thera [Multivitamin 1 tab PO DAILY 11/24/16 01/26/17 History (formulary)] Amitriptyline HCl [Elavil] 50 mg PO HS 12/25/16 01/26/17 History Metoprolol Tartrate [Lopressor] 50 mg PO BID 12/25/16 01/26/17 History Omeprazole 20 mg PO DAILY 12/25/16 01/26/17 History Oxybutynin Chloride [Ditropan] 5 mg PO DAILY 12/25/16 01/26/17 History amLODIPine [Norvasc] 5 mg PO DAILY 12/25/16 01/26/17 History levETIRAcetam [Keppra] 750 mg PO Q12H 12/25/16 01/26/17 History Enoxaparin [Lovenox] 1 dose SQ DAILY 01/26/17 01/26/17 History HYDROcodone/APAP 5-325MG [Ackerman 1 tab PO Q6HR PRN 01/26/17 01/26/17 History 5-325] traMADol HCL [Ultram] 50 mg PO Q6H PRN 01/26/17 01/26/17 History Allergies Allergy/AdvReac Type Severity Reaction Status Date / Time No Known Allergies Allergy Verified 01/26/17 08:06 Physical Examination The patient appears comfortable. She is not appear to be in acute distress. She is alert and answers questions appropriately. She is somewhat of a poor historian.She has cachexia. Breathing appears nonlabored. Abdomen appears soft and nondistended. Left lower extremity is in a knee brace. Is difficult to assess where her pain is on exam. She is very apprehensive and complains of pain with any motion of her left lower extremity. She relates that the majority of her pain is at her distal left thigh. She has chronic left foot drop. She has sensation to light touch. Her calf is soft and nontender. Dorsalis pedis pulse 1+ out of 2+. Results At the time my evaluation no x-rays have been obtained of the left lower extremity. - Labs Result Diagrams: 01/25/17 22:25 01/25/17 22:25 Assessment and Plan (1) Failed hardware Status: Acute (2) Left hip pain Status: Acute (3) Pain of left lower extremity Status: Acute Plan: Patient was seen and evaluated at bedside. Clinical findings were discussed with the patient. She appears to have tenderness throughout her hip and left femur. This difficult to assess where the majority of her pain is based on her exam. I'll discuss her clinical findings with Dr. Serafin Mills. Orthopedics recommends obtaining x-rays of her left femur and tibia to rule out acute fracture. Further recommendations will be made based on those findings.
[2017-01-28] MEDS: HYDROcodone/APAP 7.5-325MG 1 EACH TAB PO PRN ×3 (00:06→20:20)
[2017-01-28] MEDS: METOPROLOL TARTRATE 50 MG TAB PO SCH ×3 (00:07→20:21)
[2017-01-28] MEDS: SENNOSIDES 8.6 MG TAB PO SCH ×3 (00:07→20:21)
[2017-01-28] MEDS: AMITRIPTYLINE HCL 50 MG TAB PO SCH ×2 (00:07→20:20)
[2017-01-28] MEDS: traMADol 50 MG TAB PO PRN (00:53)
[2017-01-28] MEDS: LORazepam 1 MG TAB PO PRN ×2 (00:54→20:21)
[2017-01-28] MEDS: amLODIPine 5 MG TAB PO SCH (09:31)
[2017-01-28] MEDS: PANTOPRAZOLE 40 MG TABLET PO SCH ×2 (09:31→19:59)
[2017-01-28] MEDS: ATORVASTATIN 80 MG TAB PO SCH (09:32)
[2017-01-28] MEDS: BISACODYL 5 MG TABLET.DR PO SCH (09:32)
[2017-01-28] MEDS: ENOXAPARIN 60 MG/0.6 ML SYRINGE SQ SCH (09:32)
[2017-01-28] MEDS: LORATADINE 10 MG TAB PO SCH (09:32)
[2017-01-28] MEDS: POLYETHYLENE GLYCOL 3350 17 GM POWD.PACK PO SCH (09:33)
[2017-01-28] MEDS: MULTIVITAMINS, THERA 1 EACH TAB PO SCH (09:33)
[2017-01-28] MEDS: OXYBUTYNIN CHLORIDE 5 MG TAB PO SCH (09:33)
--- NOTE | 2017-01-28 09:35 | P.PN ---
Subjective Principal diagnosis: Left distal femur fracture Objective - Vital Signs Vital signs: Vital Signs Temp 97.5 F L 01/28/17 08:00 Pulse 106 H 01/28/17 08:00 Resp 16 01/28/17 08:00 BP 124/73 01/28/17 08:00 Pulse Ox 94 L 01/28/17 08:00 Intake & Output 01/27/17 01/28/17 01/28/17 18:59 06:59 18:59 Intake Total 120 Output Total 3 Balance -3 120 Intake: Oral 120 Output: Stool 3 Other: Voiding Method Diaper Diaper Incontinent Incontinent # Voids 1 - Exam This is a 71-year-old female who we are following regarding her left distal femur fracture. The patient is a poor surgical candidate. Her fracture is being managed in a hinged knee brace. She complains of 8/10 pain today. She has no new complaints or concerns. - Labs CBC & Chem 7: 01/25/17 22:25 01/25/17 22:25 Assessment and Plan (1) Fracture of distal end of left femur Status: Acute (2) Pain of left lower extremity Status: Acute Plan: The clinical findings are discussed the patient. She is to continue the hinged knee brace for mobilization. We're planning transfer to [facility] possibly tomorrow.
[2017-01-28] MEDS: SODIUM CHLORIDE 0.9% 1,000 ML IV SCH ×3 (11:14→19:58)
--- NOTE | 2017-01-28 12:22 | P.PN ---
Subjective Principal diagnosis: Intractable left leg pain Patient seen and examined. Patient states her pain is better controlled. She does not want to go back to the rehab facility that she came from. She is willing to go to a different facility. Placement is pending. Objective - Vital Signs Vital signs: Vital Signs Temp 97.5 F L 01/28/17 08:00 Pulse 106 H 01/28/17 08:00 Resp 16 01/28/17 08:00 BP 124/73 01/28/17 08:00 Pulse Ox 94 L 01/28/17 08:00 Intake & Output 01/27/17 01/28/17 01/28/17 18:59 06:59 18:59 Intake Total 120 Output Total 3 Balance -3 120 Intake: Oral 120 Output: Stool 3 Other: Voiding Method Diaper Diaper Incontinent Incontinent # Voids 1 - Exam Gen. patient is alert and oriented 3, no acute distress, cachexia, poor historian Cardiovascular: Regular rate and rhythm, S1/S2 Lungs: Diminished breath sounds bilaterally otherwise clear Abdomen: Soft nontender nondistended positive bowel sounds Extremities: No edema - Labs CBC & Chem 7: 01/25/17 22:25 01/25/17 22:25 Assessment and Plan Plan: Intractable left lower extremity pain with new distal left femur fracture Recent pneumonia COPD, not acutely exacerbated Paroxysmal atrial fibrillation Multiple bilateral pulmonary nodules Mitral valve prolapse History of CVA with left-sided weakness Protein calorie malnutrition Anxiety and depression History of seizures Chronic back pain Recent UTI History of DVT Dyslipidemia Urinary retention O2 to maintain saturation greater than equal to 88% Pain control CT of the chest is reviewed. There are some improvement in pulmonary nodules. Given the patient's poor overall health would hold off on bronchoscopy with biopsies at this time. If patient's functional status improves we could reconsider as an outpatient. Continue patient's home medications GI and DVT prophylaxis Incentive spirometry and pulmonary hygiene Physical and occupational therapy Gentle fluid hydration Monitor labs Patient seen and examined covering for Dr. Masood Cornejo. Discharge planning for possible rehab in the next 24-48 hours.
[2017-01-28 22:03] VITALS: RESP 16
[2017-01-29] MEDS: HYDROcodone/APAP 7.5-325MG 1 EACH TAB PO PRN ×2 (01:24→15:04)
[2017-01-29] MEDS: LORazepam 1 MG TAB PO PRN (01:24)
[2017-01-29] MEDS: SODIUM CHLORIDE 0.9% 1,000 ML IV SCH (03:57)
--- NOTE | 2017-01-29 08:05 | P.PN ---
Subjective Principal diagnosis: Left distal femur fracture Is a 71-year-old female who we are following regarding her left distal femur fracture. She has no new complaints or concerns today. Objective - Vital Signs Vital signs: Vital Signs Temp 98.3 F 01/29/17 08:00 Pulse 84 01/29/17 08:00 Resp 16 01/29/17 08:00 BP 124/71 01/29/17 08:00 Pulse Ox 94 L 01/29/17 08:00 Intake & Output 01/28/17 01/29/17 01/29/17 18:59 06:59 18:59 Intake Total 440 Balance 440 Intake: Oral 440 Other: Voiding Method Diaper Incontinent # Voids 1 - Exam Is a pleasant 71-year-old female in no acute distress. She is alert but quite sleepy today. I difficulty waking her for exam. Her brace is intact. She has full foot and ankle motion without difficulty or pain. Neurovascular status to the lower extremities intact. - Labs CBC & Chem 7: 01/25/17 22:25 01/25/17 22:25 Assessment and Plan (1) Fracture of distal end of left femur Status: Acute (2) Pain of left lower extremity Status: Acute Plan: The clinical findings are discussed the patient. She is to continue the hinged knee brace for mobilization. We're planning transfer to [facility] when cleared medically. She is to follow-up in [address] Serafin Mills.
[2017-01-29] MEDS: ENOXAPARIN 60 MG/0.6 ML SYRINGE SQ SCH (09:52)
[2017-01-29] MEDS: ATORVASTATIN 80 MG TAB PO SCH (09:52)
[2017-01-29] MEDS: OXYBUTYNIN CHLORIDE 5 MG TAB PO SCH (09:52)
[2017-01-29] MEDS: MULTIVITAMINS, THERA 1 EACH TAB PO SCH (09:52)
[2017-01-29] MEDS: amLODIPine 5 MG TAB PO SCH (09:52)
[2017-01-29] MEDS: METOPROLOL TARTRATE 50 MG TAB PO SCH (09:52)
[2017-01-29] MEDS: PANTOPRAZOLE 40 MG TABLET PO SCH (09:52)
[2017-01-29] MEDS: LORATADINE 10 MG TAB PO SCH (09:52)
[2017-01-29] MEDS: SENNOSIDES 8.6 MG TAB PO SCH (09:53)
[2017-01-29] MEDS: POLYETHYLENE GLYCOL 3350 17 GM POWD.PACK PO SCH (09:53)
[2017-01-29] MEDS: BISACODYL 5 MG TABLET.DR PO SCH (09:53)
--- NOTE | 2017-01-29 12:44 | P.DS ---
Providers Date of admission: 01/27/17 14:40 Expected date of discharge: 01/29/17 Attending physician: Masood Cornejo Consults: 71-year-old female who was transferred from the [facility] facility [facility] for increased pain in the left lower leg. Patient reportedly had been receiving Havana for chronic pain. Does have a history of a previous healed fracture to the left proximal femur. Patient has a hinged brace on. Patient states she was getting no pain relief with the Havana's. Patient was admitted to the emergency room for pain control subsequent has been admitted with orthopedic consultation obtained. Patient does have a history of having a stroke which did affect the left side. Patient reportedly needs assist with all ADLs. Patient denied any falls Orthopedic consultation was obtained Patient is known to Dr. Serafin Mills. She has history of IT nail for left hip fracture with Dr. Arceo in 2014. She had failure of her left hip hardware and possible Girdlestone procedure was considered. However the patient sustained a tibia fracture along with multiple other medical problems. She's had several admissions and ER visits. She has history of DVT in the past. She also has history of CVA with some left-sided weakness . She complains of pain in her left lower extremity. She describes the pain as mostly being in the posterior aspect of her upper thigh. She also complains of chronic left hip pain. she denies any recent injury or trauma. She has been residing at a rehab facility where her pain was uncontrolled and subsequently she was transferred to [facility]. Overall the patient is a poor historian is difficult to obtain a detailed history. Orthopedics recommended continuing the hinged knee brace for mobilization to the left leg. They would follow the patient up in the office in [address] Serafin mills A fentanyl patch 12mcg was initiated on admission for pain control with the using of Havana for breakthrough pain. The time of discharge the fentanyl patch was effective for pain control. The disease case manager rn and aids social worker met with the patient and the patient's daughter. Patient wanted to be transferred to [facility] in [place] which was closer to her daughter's home was insistent that she not return to [facility]. The disease case manager rn did discuss the transfer to another facility with the patient and the daughter and arrangements were made for the patient to go to [facility] which was closer to her daughter's home which would allow for more support. Patient was aware that her primary doctor Clemente did not go to [facility]. Patient was felt to be medically stable and appropriate proceed with a discharge to the [facility] facility of patient's choice [facility] Impression discharge diagnosis Fracture of distal end of left femur Status: Acute Present on admission intractable left hip pain suspect due to a new acute left displaced fracture through the distal femur CAT scan of the chest extensive bilateral multiple nodules slight improvement from prior CAT scan one nodule enlarged in size over the interval right middle lobe Chronic constipation likely due to opiate dependency Present on admission left hip pain orthopedic eval indicates no orthopedic intervention at this time suspect due to a new acute left femoral distress fracture Chronic pain narcotic dependency 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 Masood Cornejo. Impression and the plan of care have been dictated as directed. India Pate nurse practitioner acting as a scribe for Dr. West is covering for Dr. Masood Cornejo. Patient seen and examined covering for Dr. Masood Cornejo. Primary care physician: Masood Cornejo Patient Condition at Discharge: Critical Plan - Discharge Summary New Discharge Prescriptions: Amitriptyline HCl [Elavil] 50 mg PO HS #30 tab Edoxaban Tosylate [Savaysa] 60 mg PO DAILY #30 tab HYDROcodone/APAP 7.5-325MG [Havana 7.5-325] 1 each PO Q8H PRN #30 tab PRN Reason: Moderate Pain LORazepam [Ativan] 1 mg PO Q8H PRN #30 tab PRN Reason: Anxiety fentaNYL 12MCG/HR PATCH [Duragesic 12MCG/HR] 1 patch TRANSDERM Q72H #10 patch Discharge Medication List Loratadine [Claritin] 10 mg PO DAILY tab 10/14/16 [Rx] Multivitamins, Thera [Multivitamin (formulary)] 1 tab PO DAILY 11/24/16 [History ] Metoprolol Tartrate [Lopressor] 50 mg PO BID 12/25/16 [History] Omeprazole 20 mg PO DAILY 12/25/16 [History] Oxybutynin Chloride [Ditropan] 5 mg PO DAILY 12/25/16 [History] amLODIPine [Norvasc] 5 mg PO DAILY 12/25/16 [History] levETIRAcetam [Keppra] 750 mg PO Q12H 12/25/16 [History] Atorvastatin [Lipitor] 80 mg PO DAILY #30 tab 12/31/16 [Rx] Bisacodyl [Dulcolax] 5 mg PO DAILY #30 tablet. 12/31/16 [Rx] Ipratropium-Albuterol Nebulize [Duoneb 0.5 mg-3 mg/3 ml Soln] 3 ml INHALATION RT -QID PRN #0 ampul.neb 12/31/16 [Rx] Polyethylene Glycol 3350 [Miralax] 17 gm PO DAILY #30 packet 12/31/16 [Rx] Sennosides [Senokot] 8.6 mg PO BID #60 tablet 12/31/16 [Rx] Amitriptyline HCl [Elavil] 50 mg PO HS #30 tab 01/29/17 [Rx] Edoxaban Tosylate [Savaysa] 60 mg PO DAILY #30 tab 01/29/17 [Rx] HYDROcodone/APAP 7.5-325MG [Havana 7.5-325] 1 each PO Q8H PRN #30 tab 01/29/17 [ Rx] LORazepam [Ativan] 1 mg PO Q8H PRN #30 tab 01/29/17 [Rx] fentaNYL 12MCG/HR PATCH [Duragesic 12MCG/HR] 1 patch TRANSDERM Q72H #10 patch [Rx] Follow up Appointment(s)/Referral(s): Masood Cornejo MD [Primary Care Provider] - 1-2 days Serafin Mills DO [Doctor of Osteopathic Medicine] - 2 Weeks Activity/Diet/Wound Care/Special Instructions: Maintain hinged knee brace. Check skin daily for pressure ulcers. Nonweightbearing to the left lower extremity. Discharge Disposition: TRANSFER TO SNF/ECF
[2017-01-29 14:34] VITALS: BP 129/66; PULSE 84; TEMP 97.6
== END 2017-01-29 15:15 | DRG 534 ==
LOC: EC 20:37 → 3OBS 01-26 00:32 → OBSVTOIN 01-27 14:40 → 3SUR 01-29 11:10
PROVIDERS: ADMIT Family Medicine; ATTEND Family Medicine
DX: S72.402A Unspecified fracture of lower end of left femur, initial encounter for closed fracture (principal); R64 Cachexia; I69.354 Hemiplegia and hemiparesis following cerebral infarction affecting left non-dominant side; I48.0 Paroxysmal atrial fibrillation; J44.9 Chronic obstructive pulmonary disease, unspecified; G40.909 Epilepsy, unspecified, not intractable, without status epilepticus; F32.9 Major depressive disorder, single episode, unspecified; I10 Essential (primary) hypertension; Z68.1 Body mass index [BMI] 19.9 or less, adult; E44.1 Mild protein-calorie malnutrition; E78.5 Hyperlipidemia, unspecified; F40.240 Claustrophobia; K21.9 Gastro-esophageal reflux disease without esophagitis; Z87.891 Personal history of nicotine dependence; G89.29 Other chronic pain; I25.2 Old myocardial infarction; I34.1 Nonrheumatic mitral (valve) prolapse; R33.9 Retention of urine, unspecified; Z79.899 Other long term (current) drug therapy; Z82.49 Family history of ischemic heart disease and other diseases of the circulatory system; Z86.718 Personal history of other venous thrombosis and embolism; Z87.01 Personal history of pneumonia (recurrent); Z87.11 Personal history of peptic ulcer disease; Z87.442 Personal history of urinary calculi; R91.8 Other nonspecific abnormal finding of lung field; K59.03 Drug induced constipation; T40.2X5A Adverse effect of other opioids, initial encounter
CPT/HCPCS: 36415; 71250; 80053; 85025; 94760; 96372; 96374; 96376; 99285